=== PATIENT | female | born 1985 | race Caucasian/White ===

== ENCOUNTER 2018-08-27 10:20 | Outpatient (REF) | payer BC, SELFPAY ==
[2018-08-28 14:18] LABS: Chlamydia Result Negative; GC Result Negative; Specimen Description CERVIX
== END 2018-08-27 10:40 ==
LOC: LBN 10:20
PROVIDERS: PCP Family Medicine; Visit Provider Nurse Practitioner Women's Health
DX: Z11.3 Encounter for screening for infections with a predominantly sexual mode of transmission (principal)
CPT/HCPCS: 87491; 87591

== ENCOUNTER 2019-08-23 14:53 | Outpatient (REF) | payer BC, SELFPAY ==
--- NOTE | 2019-08-23 14:15 | PAPFT_PTH ---
PATIENT: Brenda Ding LOC: [facility] U#:[id number] AGE/SX: 33/F ROOM: RE08/23/[address]: NILE Shin : 1985 BED: DIS: 08/23/2019 SPEC #: [id number] RECD: 08/23/19 18:35 STATUS: OLIVEChrissy REQ #: [id number] PRISCILLA: 08/23/19 14:[address]: Alicia Graf DEPT: [facility] Cytology RECD BY: Carrie Harding ENTERED: 08/23/19 18:35 SP TYPE: PAPFT OTHR DR: Chau Villegas Tissues: 1 - CX/ENDOCX FOR PAP SMEARS Procedures: PAP THIN PREP/UVM Screening HPV DNA PROBE Comments: [id number]
== END 2019-08-23 15:13 ==
LOC: LBN 14:53
PROVIDERS: PCP Family Medicine; Visit Provider Nurse Practitioner Family
DX: Z12.4 Encounter for screening for malignant neoplasm of cervix (principal); Z11.51 Encounter for screening for human papillomavirus (HPV)
CPT/HCPCS: 88142; 87624

== ENCOUNTER 2019-08-23 15:58 | Outpatient (CLI) | payer BC, SELFPAY ==
[2019-08-23 17:01] LABS: HCG Quant, Pregnancy 65 mIU/mL (1-3)
== END 2019-08-23 16:18 ==
PROVIDERS: PCP Family Medicine; Visit Provider Nurse Practitioner Family
DX: Z32.01 Encounter for pregnancy test, result positive (principal)
CPT/HCPCS: 36415; 84702

== ENCOUNTER 2019-08-26 09:34 | Outpatient (CLI) | payer BC, SELFPAY ==
[2019-08-26 12:25] LABS: HCG Quant, Pregnancy 50 mIU/mL (1-3)
== END 2019-08-26 09:54 ==
PROVIDERS: PCP Family Medicine; Visit Provider Nurse Practitioner Family
DX: Z32.01 Encounter for pregnancy test, result positive (principal)
CPT/HCPCS: 36415; 84702

== ENCOUNTER 2019-09-03 09:49 | Outpatient (CLI) | payer BC, SELFPAY ==
[2019-09-03 11:43] LABS: HCG Quant, Pregnancy 45 mIU/mL (1-3)
== END 2019-09-03 10:09 ==
PROVIDERS: PCP Family Medicine; Visit Provider Nurse Practitioner Family
DX: N92.6 Irregular menstruation, unspecified (principal)
CPT/HCPCS: 36415; 84702

== ENCOUNTER 2019-09-06 01:53 | Outpatient (CLI) | payer BC, SELFPAY ==
[2019-09-06 09:38] LABS: HCG Quant, Pregnancy 7 mIU/mL (1-3)
--- NOTE | 2019-09-06 15:00 | DI.US_ITS ---
EXAM: US OB TRANSVAGINAL CLINICAL HISTORY: inappropriately rising quant - r/o ectopic,Q20.9 TECHNIQUE: Ultrasound performed using standard protocol. COMPARISON: PELVIS TRANSVAG from 12/25/2016 FINDINGS: The uterus measures 7.6 cm long by 4.1 cm AP x 5.4 cm transverse. No evidence of a uterine mass is s een. There is no evidence of an intrauterine gestational sac. There is a small amount of free fluid in the lower uterine segment of the endometrial canal. The right ovary measures 3.4 x 1.7 x 1.5 cm. There are small follicular cysts present. There is norm al blood flow to the right ovary. No evidence of torsion is present. No suspicious ovarian mass is present. The left ovary measures 2.8 x 1.6 x 2.6 cm. There are small follicular cysts present. There is sabino l blood flow to the left ovary. No evidence of torsion is present. No suspicious ovarian mass is pr esent. No suspicious adnexal mass or free pelvic fluid is seen. IMPRESSION: Unremarkable pelvic ultrasound. No evidence of an intrauterine or pelvic mass.
== END 2019-09-06 02:13 ==
PROVIDERS: PCP Family Medicine; Visit Provider Nurse Practitioner Family
DX: N92.6 Irregular menstruation, unspecified (principal); N83.01 Follicular cyst of right ovary
CPT/HCPCS: 36415; 76817; 84702

== ENCOUNTER 2020-03-17 13:43 | Outpatient (CLI) | payer BC, SELFPAY ==
[2020-03-20 12:23] LABS: COVID-19 RT-PCR UVMMC Result Negative (Negative)
== END 2020-03-17 14:03 ==
PROVIDERS: PCP Family Medicine; Visit Provider Obstetrics & Gynecology
DX: Z11.59 Encounter for screening for other viral diseases (principal)
CPT/HCPCS: U0003

== ENCOUNTER 2020-03-20 09:44 | Day surgery (SDC) | payer BC, SELFPAY ==
[2020-03-20 10:01] VITALS: BP 108/71; PULSE 84; RESP 16; TEMP 36.9; O2SAT 99
--- NOTE | 2020-03-20 10:15 | W.PM.HP.N ---
Date of service: 03/20/20 Time of Service: 10:15 Assessment and Plan Assessment and plan (1) Missed : Status: Acute Assessment and plan: Plan to proceed with suction D&C. Risks of surgery were reviewed with the patient including hemorrhage, infection and uterine perforation. All questions were answered to the patient's satisfaction and consent for surgery was obtained. History of Present Illness History of Present Illness Chief Complaint: Missed Narrative: 34 year old @ ~ 10 weeks gestation by LMP presents today for surgical management of missed . The patient underwent 1st trimester ultrasound in the clinic nearly two weeks ago which showed an empty and irregular gestational sac with no visible pole or yolk sac. The patient initial elected for expectant management and then opted for medical management at home. She recieved multiple doses of both oral and vaginal misoprostol with no result over several days. The decision was made to discontinue medical management and proceed with surigical management. She has had no significant vaginal bleeding. No pain or fevers but reports a feeling of malaise over the last week and attributes this to the miscarriage. Review of Systems All systems reviewed & are unremarkable except as noted in HPI and below PFSH Social History Smoking/Tobacco Use Status: Never Alcohol Intake: current Alcohol Intake frequency: a few times a month Drug use: Never Substance use type: does not use Counseling given: No Details: alcohol: weeks ago Seatbelt use: always Do you feel safe at home: Yes Do you feel safe in your relationship?: Yes Female Reproductive History Menstrual control method: progestin IUCD History History 3 Para 1 Hx # Term Pregnancies Multiple births Hx # Pregnancies Ectopic pregnancies AB induced Hx Number of Living Children AB spontaneous 1 Meds Home Medications and Allergies Home Medications Medication Instructions Recorded Confirmed Type ascorbic acid (vitamin C) 500 mg 500 mg PO DAILY PRN cap 08/23/19 03/20/20 History capsule misoprostol 200 mcg tablet 400 mcg PO .q4h #3 tab 03/07/20 03/20/20 Rx Allergies Allergy/AdvReac Type Severity Reaction Status Date / Time No Known Allergies Allergy Unverified 03/20/20 09:59 Exam Resp Auscultation: clear to auscultation bilaterally Cardio Rate: regular rate Rhythm: regular rhythm Results Last Vital Signs Temp 98.4 F 05/11/20 10:01 Pulse 84 03/20/20 10:01 Resp 16 03/20/20 10:01 BP 108/71 03/20/20 10:01 Pulse Ox 99 03/20/20 10:01 COVID-19 Screening Traveled to [place] from one of the affected countries or regions?: NO
[2020-03-20 10:33] LABS: Abs Immature Grans 0.01 k/cumm (0.0-0.09); Absolute Basophil Count 0.02 k/cumm (0.0-0.2); Absolute Eosinophil Count 0.03 k/cumm (0.0-0.7); Absolute Lymphocyte Count 1.45 k/cumm (1.2-3.4); Absolute Monocyte Count 0.47 k/cumm (0.11-0.7); Absolute Neutrophil Count 4.39 k/cumm (1.2-6.7); Basophils % 0.3; Eosinophils % 0.5; HCT 38.5 % (36.0-46.0); HGB 13.4 g/dL (12.0-15.5); Immature Grans % 0.2 %; Lymphocytes % 22.8; Mean Corp. HGB Concentration 34.8 g/dL (32.0-36.0); Mean Corpuscular Hemoglobin 32.1 pg (27.0-33.0); Mean Corpuscular Volume 92.1 fL (80-95); Mean Platelet Volume 10.1 fL (8.0-11.0); Monocytes % 7.4; Neutrophils % 68.8; Platelet Count 215 x1000/uL (130-400); RBC 4.18 m/cumm (4.00-5.20); RBC Distribution Width 12.2 % (11.7-14.6); White Blood Cell Count 6.37 k/cumm (4.4-10.8)
[2020-03-20] MEDS: Lactated Ringers 1,000 ML 125 ML IV (10:40)
[2020-03-20] MEDS: Lidocaine 1% Multi-Dose 50 ML VIAL (11:20)
--- NOTE | 2020-03-20 11:29 | POCSPONT_PTH ---
PATIENT: Brenda Ding LOC: [facility] U#:[id number] AGE/SX: 34/F ROOM: RE03/20/[address]: Ronald Moran MD : 1985 BED: DIS: 03/20/2020 SPEC #: [id number] RECD: 03/20/20 12:27 STATUS: FLACO [place]AY #: [id number] PRISCILLA: 03/20/20 11:[address]: Ronald Moran DEPT: Surgical Specimen RECD BY: Carrie Harding ENTERED: 03/20/20 12:28 SP TYPE: POCSPONT OTHR DR: Chau Villegas Tissues: 1 - ,SPONTANEOUS Procedures: GROSS AND MICRO LEVEL 4 IMMUNOPEROXIDASE STAIN POC Aneuploidy Detection, FISH Comments: [id number]
--- NOTE | 2020-03-20 11:31 | W.PM.OP ---
Date of service: 03/20/20 Time of Service: 11:31 Operative Note Operative Note DATE OF PROCEDURE: 03/20/20 PRE-OP DIAGNOSIS: 9 week Missed POST-OP DIAGNOSIS: same PROCEDURE: Suction D&C SURGEON: Ronald Moran ANESTHESIA: MAC ESTIMATED BLOOD LOSS: 75 PATHOLOGY: other (POC) COMPLICATIONS: None Patient was transported to: PACU Patient's condition: stable Findings: 1. Products of conception Procedure Description: The patient was taken to the operating room and after adequate sedation was achieved the patient was placed in lithotomy position. The patient was prepped and draped in the usual sterile manner. A weighted speculum was placed in the vagina with good visualization of the cervix. The cervix was grasped with an Allis forceps. A paracervical block with 10 cc of 1% plain lidocaine solution was instilled. The cervix was gently dilated with [place] dilators. A 10 Swedish curved suction curette was advanced easily. The suction apparatus was activated and the curette was rotated. Copious products of conception were retrieved. A sharp curettage was performed and a second pass with the suction curette was made. An additional sharp curettage confirmed a gritty texture throughout and no additional products of conception were retrieved. The uterus was well contracted. Bleeding was minimal. The procedure was concluded at this point. All instrumentation was removed. Sponge, lap and needle counts were correct at the conclusion of the procedure. The patient was transferred to PACU in stable condition.
--- NOTE | 2020-03-20 11:34 | W.PM.DSUDISC ---
Discharge Plan Disposition Patient Disposition: HOME Discharge Details Reason For Visit: MISSED AB Attending Provider: Ronald Moran Primary Care Provider: Chau Villegas [place] Meds and New Rx's Prescriptions: New hydrocodone-acetaminophen 5-325 mg Tablet 1 tab PO Q4H PRN Qty: 10 RF: 0 No Action ascorbic acid (vitamin C) 500 mg capsule 500 mg PO DAILY PRN RF: 0 misoprostol 200 mcg tablet 400 mcg PO .q4h Qty: 3 RF: 0 Discharge Orders Discharge Orders: Discharge Order (Routine); Ordered 03/20/20 Ordered By: Ronald Moran DS: Diagnosis Discharge Diagnosis (1) Missed : Status: Acute
[2020-03-20 12:08] VITALS: BP 120/68; PULSE 73; RESP 16; TEMP 36.3; O2SAT 99
== END 2020-03-20 13:00 | disposition home or self-care (01) ==
PROVIDERS: PCP Family Medicine; Visit Provider Obstetrics & Gynecology
PROC: (CPT 59841; principal; 2020-03-20 11:00)
DX: O02.1 Missed abortion (principal)
CPT/HCPCS: 59820; 36415; 86850; 86900; 86901; 88305; 99223; 85025; 88271; 88291; 88361; J1885; J2001; J2405

== ENCOUNTER 2020-03-28 03:20 | Outpatient (CLI) | payer BC, SELFPAY ==
[2020-03-28 14:05] LABS: ALT 28 U/L (14-59); AST 18 U/L (15-37); Albumin 3.9 g/dL (3.4-5.0); Alkaline Phosphatase 63 U/L (46-116); Anion Gap 8.7 mmol/L (3-11); BUN 14 mg/dL (7-18); Bilirubin, Total 0.5 mg/dL (0.2-1.0); CO2 28.3 mmol/L (21.0-32.0); CREATININE 0.78 mg/dL (0.55-1.02); Chloride 102 mmol/L (98-107); Glucose 78 mg/dL (74-106); HCG Quant, Pregnancy 681 mIU/mL (1-3); Potassium 4.1 mmol/L (3.5-5.1); Sodium 139 mmol/L (136-145); TSH 1.22 uIU/mL (0.36-3.74); Total Protein 7.2 g/dL (6.4-8.2)
== END 2020-03-28 03:40 ==
PROVIDERS: PCP Family Medicine; Visit Provider Obstetrics & Gynecology
DX: O08.89 Other complications following an ectopic and molar pregnancy (principal)
CPT/HCPCS: 36415; 80053; 84443; 84702

== ENCOUNTER 2020-04-04 01:48 | Outpatient (CLI) | payer BC, SELFPAY ==
[2020-04-04 16:22] LABS: HCG Quant, Pregnancy 81 mIU/mL (1-3)
== END 2020-04-04 02:08 ==
PROVIDERS: PCP Family Medicine; Visit Provider Obstetrics & Gynecology
DX: O08.89 Other complications following an ectopic and molar pregnancy (principal)
CPT/HCPCS: 36415; 84702

== ENCOUNTER 2020-04-11 04:37 | Outpatient (CLI) | payer BC, SELFPAY ==
[2020-04-11 11:55] LABS: HCG Quant, Pregnancy 20 mIU/mL (1-3)
== END 2020-04-11 04:57 ==
PROVIDERS: PCP Family Medicine; Visit Provider Obstetrics & Gynecology
DX: O08.89 Other complications following an ectopic and molar pregnancy (principal)
CPT/HCPCS: 36415; 84702

== ENCOUNTER 2020-04-18 04:30 | Outpatient (CLI) | payer BC, SELFPAY ==
[2020-04-18 13:03] LABS: HCG Quant, Pregnancy 7 mIU/mL (1-3)
== END 2020-04-18 04:50 ==
PROVIDERS: Nurse Practitioner Women's Health; PCP Family Medicine; Visit Provider Obstetrics & Gynecology
DX: N91.2 Amenorrhea, unspecified (principal)
CPT/HCPCS: 36415; 84702

== ENCOUNTER 2020-04-27 04:24 | Outpatient (CLI) | payer BC, SELFPAY ==
[2020-04-27 13:01] LABS: HCG Quant, Pregnancy 4 mIU/mL (1-3)
== END 2020-04-27 04:44 ==
PROVIDERS: PCP Family Medicine; Visit Provider Obstetrics & Gynecology
DX: O08.89 Other complications following an ectopic and molar pregnancy (principal)
CPT/HCPCS: 36415; 84702

== ENCOUNTER 2020-05-11 02:13 | Outpatient (CLI) | payer BC, SELFPAY ==
[2020-05-11 11:17] LABS: HCG Quant, Pregnancy 2 mIU/mL (1-3)
== END 2020-05-11 02:33 ==
PROVIDERS: PCP Family Medicine; Visit Provider Obstetrics & Gynecology
DX: O08.89 Other complications following an ectopic and molar pregnancy (principal)
CPT/HCPCS: 36415; 84702

== ENCOUNTER 2020-06-13 01:41 | Outpatient (CLI) | payer BC, SELFPAY ==
[2020-06-13 14:01] LABS: HCG Quant, Pregnancy 1 mIU/mL (1-3)
== END 2020-06-13 02:01 ==
PROVIDERS: PCP Family Medicine; Visit Provider Obstetrics & Gynecology
DX: O01.9 Hydatidiform mole, unspecified (principal)
CPT/HCPCS: 36415; 84702

== ENCOUNTER 2020-07-21 03:54 | Outpatient (CLI) | payer BC, SELFPAY ==
[2020-07-21 12:47] LABS: HCG Quant, Pregnancy < 1 mIU/mL (1-3)
== END 2020-07-21 04:14 ==
PROVIDERS: PCP Family Medicine; Visit Provider Obstetrics & Gynecology
DX: O01.1 Incomplete and partial hydatidiform mole (principal)
CPT/HCPCS: 36415; 84702

== ENCOUNTER 2020-08-15 01:18 | Outpatient (CLI) | payer BC, SELFPAY ==
[2020-08-15 16:45] LABS: HCG Quant, Pregnancy < 1 mIU/mL (1-3)
== END 2020-08-15 01:38 ==
PROVIDERS: PCP Family Medicine; Visit Provider Obstetrics & Gynecology
DX: O01.1 Incomplete and partial hydatidiform mole (principal)
CPT/HCPCS: 36415; 84702

== ENCOUNTER 2020-09-11 03:40 | Outpatient (CLI) | payer BC, SELFPAY ==
[2020-09-11 13:59] LABS: HCG Quant, Pregnancy < 1 mIU/mL (1-3)
== END 2020-09-11 04:00 ==
PROVIDERS: PCP Family Medicine; Visit Provider Obstetrics & Gynecology
DX: O01.1 Incomplete and partial hydatidiform mole (principal)
CPT/HCPCS: 36415; 84702

== ENCOUNTER 2020-10-09 03:33 | Outpatient (CLI) | payer BC, SELFPAY ==
[2020-10-09 17:17] LABS: HCG Quant, Pregnancy < 1 mIU/mL (1-3)
== END 2020-10-09 03:53 ==
PROVIDERS: PCP Family Medicine; Visit Provider Obstetrics & Gynecology
DX: O08.89 Other complications following an ectopic and molar pregnancy (principal)
CPT/HCPCS: 36415; 84702

== ENCOUNTER 2021-01-02 09:57 | Outpatient (CLI) | payer BC, SELFPAY ==
[2021-01-02 10:56] LABS: HCG Quant, Pregnancy 13498 mIU/mL (1-3)
== END 2021-01-02 09:58 | disposition home or self-care (01) ==
LOC: LBO 09:58
PROVIDERS: PCP Family Medicine; Visit Provider Nurse Practitioner Women's Health
DX: Z32.00 Encounter for pregnancy test, result unknown (principal); Z87.59 Personal history of other complications of pregnancy, childbirth and the puerperium
CPT/HCPCS: 36415; 84702

== ENCOUNTER 2021-01-10 01:33 | Outpatient (CLI) | payer BC, SELFPAY ==
--- NOTE | 2021-01-10 07:00 | DI.US_ITS ---
EXAM: US OB 1ST TRIMESTER CLINICAL HISTORY: , previous molar ,Z87.59. COMPARISON: No previous for comparison TECHNIQUE: Transabdominal Transvaginal first trimester obstetrical ultrasound performed. FINDINGS: Sonographic images demonstrate a single intrauterine gestation. A yolk sac and pole are seen. Sonographically assessed gestational age based upon crown-rump length of 1.0 cm is: 7 weeks 1 day Estimated date of delivery based on this ultrasound is: 08/28/2021 heart rate motion is Dopplered at: 133 bpm. No free fluid identified. Both ovaries appear sonographically normal. There is a 2.9 x 1.9 x 3 cm corpus luteal cyst on the rig ht ovary. Pelvic Measurments Uterus: 7.1 long x 6.2 AP x 6.0 transverse cm Rt Ovary: 3.7 x 3.5 x 2.1 cm Lt Ovary: 2.6 x 1.4 x 2.1 cm IMPRESSION: Single live intrauterine gestation as above. DATA REPOSITORY:
== END 2021-01-10 01:53 ==
PROVIDERS: PCP Family Medicine; Visit Provider Nurse Practitioner Women's Health
DX: Z34.91 Encounter for supervision of normal pregnancy, unspecified, first trimester (principal); Z87.59 Personal history of other complications of pregnancy, childbirth and the puerperium
CPT/HCPCS: 76801

== ENCOUNTER 2021-02-02 15:23 | Outpatient (REF) | payer BC, SELFPAY ==
[2021-02-02 17:24] LABS: *AMPHETAMINES SCREEN URINE Negative (Negative); *BARBITURATES SCREEN URINE Negative (Negative); *BENZODIAZEPINES SCREEN URINE Negative (Negative); Cannabinoids THC Negative (Negative); Cocaine Screen,Urine Negative (Negative); METHADONE URINE SCREEN Negative (Negative); OPIATES URINE SCREEN Negative (Negative)
[2021-02-02 17:34] LABS: Tricyclic Antidepressants Negative (Negative)
[2021-02-05 14:57] LABS: Chlamydia Result Negative (Negative); GC Result Negative (Negative)
[2021-02-08 09:31] LABS: Buprenorphine Negative ng/mL (Cutoff: 5.0); Norbuprenorphine Negative ng/mL (Cutoff: 2.5)
== END 2021-02-02 15:24 | disposition home or self-care (01) ==
LOC: LBN 15:23
PROVIDERS: PCP Family Medicine; Visit Provider Advanced Practice Midwife
DX: Z34.91 Encounter for supervision of normal pregnancy, unspecified, first trimester (principal); Z11.3 Encounter for screening for infections with a predominantly sexual mode of transmission
CPT/HCPCS: 80307; 87491; 87591; 87086

== ENCOUNTER 2021-02-08 03:24 | Outpatient (CLI) | payer BC, SELFPAY ==
[2021-02-08 08:29] LABS: Abs Immature Grans 0.03 10^3/uL (0.0-0.06); Absolute Basophil Count 0.02 10^3/uL (0.0-0.2); Absolute Eosinophil Count 0.04 10^3/uL (0.0-0.7); Absolute Lymphocyte Count 1.91 10^3/uL (1.2-3.4); Absolute Monocyte Count 0.39 10^3/uL (0.1-0.8); Absolute Neutrophil Count 5.49 10^3/uL (1.2-6.7); Basophils % 0.3; Eosinophils % 0.5; HCT 38.9 % (36.0-46.0); HGB 13.4 g/dL (11.2-15.7); Immature Grans % 0.4; Lymphocytes % 24.2; MCHC 34.4 % (32.0-36.0); MCV 92.8 fL (80-95); MPV 9.6 fL (8.0-11.0); Monocytes % 4.9; Neutrophils % 69.7; Nucleated RBC 0 %; Platelet Count 201 10^3/uL (130-400); RBC 4.19 10^6/uL (3.93-5.22); RDW 12.3 % (11.7-14.6); RDW-SD 42.4 fL; WBC 7.88 10^3/uL (4.4-10.8)
[2021-02-08 09:22] LABS: TSH (W/Ref FT4) 0.79 uIU/mL (0.36-3.74)
[2021-02-09 09:35] LABS: Hepatitis B Surface Ag Negative (Negative)
[2021-02-09 09:43] LABS: Varicella IgG Antibody Positive (See Note)
[2021-02-09 09:49] LABS: Rubella IgG Ab (UVM) Positive (See Note)
[2021-02-09 10:08] LABS: Hepatitis C Ab w Rflx HCV PCR Negative (Negative)
[2021-02-09 10:22] LABS: HIV-1/2 Ag & Ab Screen Negative (Negative)
[2021-02-09 16:33] LABS: Syphilis Total Ab w/Reflex Nonreactive (Nonreactive)
== END 2021-02-08 03:25 | disposition home or self-care (01) ==
LOC: LBO 03:24
PROVIDERS: PCP Family Medicine; Visit Provider Advanced Practice Midwife
DX: Z34.91 Encounter for supervision of normal pregnancy, unspecified, first trimester (principal); Z11.4 Encounter for screening for human immunodeficiency virus [HIV]; Z11.59 Encounter for screening for other viral diseases; Z01.84 Encounter for antibody response examination
CPT/HCPCS: 36415; 86787; 86803; 86850; 86900; 86901; 87340; 87389; 84443; 85025; 86762; 86780

== ENCOUNTER 2021-06-05 03:49 | Outpatient (CLI) | payer BC, SELFPAY ==
[2021-06-05 09:01] LABS: HCT 33.5 % (36.0-46.0); HGB 11.2 g/dL (11.2-15.7); MCH 31.8 pg (27.0-33.0); MCHC 33.4 % (32.0-36.0); MCV 95.2 fL (80-95); MPV 10.4 fL (8.0-11.0); Platelet Count 163 10^3/uL (130-400); RBC 3.52 10^6/uL (3.93-5.22); RDW 12.4 % (11.7-14.6); RDW-SD 42.5 fL; WBC 7.86 10^3/uL (4.4-10.8)
[2021-06-05 09:09] LABS: Glucose,1 Hr (Glucola) 85 mg/dL (80-140)
== END 2021-06-05 03:50 | disposition home or self-care (01) ==
LOC: LBO 03:50
PROVIDERS: PCP Family Medicine; Visit Provider Advanced Practice Midwife
DX: Z34.92 Encounter for supervision of normal pregnancy, unspecified, second trimester (principal); Z3A.27 27 weeks gestation of pregnancy
CPT/HCPCS: 36415; 82950; 85027

== ENCOUNTER 2021-08-03 19:37 | Outpatient (REF) | payer BC, SELFPAY ==
[2021-08-03 12:49] LABS: *AMPHETAMINES SCREEN URINE Negative (Negative); *BARBITURATES SCREEN URINE Negative (Negative); *BENZODIAZEPINES SCREEN URINE Negative (Negative); Cannabinoids THC Negative (Negative); Cocaine Screen,Urine Negative (Negative); METHADONE URINE SCREEN Negative (Negative); OPIATES URINE SCREEN Negative (Negative); Tricyclic Antidepressants Negative (Negative)
[2021-08-09 14:17] LABS: Buprenorphine Negative ng/mL (Cutoff: 5.0); Norbuprenorphine Negative ng/mL (Cutoff: 2.5)
== END 2021-08-03 19:38 | disposition home or self-care (01) ==
LOC: LBN 19:37
PROVIDERS: PCP Family Medicine; Visit Provider Advanced Practice Midwife
DX: Z34.93 Encounter for supervision of normal pregnancy, unspecified, third trimester (principal); Z3A.36 36 weeks gestation of pregnancy
CPT/HCPCS: 80307; 87081

== ENCOUNTER 2021-08-28 23:23 | Inpatient (IN) | payer MEDICAID, SELFPAY ==
[2021-08-28] VITALS (18 sets, daily range): BP systolic 120; BP diastolic 62; PULSE 55–84; TEMP 36.8; O2SAT 95–97
[2021-08-29] VITALS (16 sets, daily range): BP systolic 96–123; BP diastolic 52–74; PULSE 43–78; RESP 16–20; TEMP 36.8–37.2; O2SAT 97–98
--- NOTE | 2021-08-29 01:00 | HPE_ITS ---
Date of service: 08/29/21 Time of Service: 00:05 Assessment and Plan Assessment and plan (1) Decreased movement: Status: Acute Assessment and plan: Admit to Center. Comfort measures. Covid- 19 test. I explained to Brenda the heart rate pattern. I recommended continuous monitoring overnight with BPP in the morning if indicated. Will consider cervical ripening if indicated tomorrow morning if spontaneous labor does not occur. Stripping of membranes was offered but Brenda declines at this time. Methods of cervical ripening were reviewed and Brenda will consider this. OB-HPI Labor/Delivery History of Present Illness Reason for Visit: Decreased Movement, FHR Deceleration to 90s Chief Complaint: Decreased Movement , Associated Signs and Symptoms of Decreased Movement: contractions. DICK Calculator Estimated Delivery Date Method Current WG Current Estimate 08/30/21 LMP (Certain) 39w 6d Other Estimates 08/28/21 Ultrasound #1 40w 1d Comments: Brenda called and reported that baby was not moving as much as usual. She reported hiccups earlier but decreased movement overall. She arrived at the Center and an NST was done. HR baseline 110 with accellerations to 140. occasional FHr decellerations which are variable and down to 90-100. Frequent mild contractions noted. Brenda is admitted for further observation. History of Present Expected Delivery Route/Plan - CNM FOB/partner - [place] (first baby together, his first child) BG - Aliza GBS negative Interested in nitrous, hopes to avoid epidural Specific Issues/Plan 1. CF negative in 2008. [place] and SMA declined 2. Brenda and partner decline vaccine. 3. Low-lying placenta - 0.64 cm from os - repeat US at 28 weeks: 06/15/21 RESOLVED placenta 6.7 cm from OS 4. difficulty with tight latch and supplemented- would like consult at about 28-30 weeks, done 06/15/21 5. Pt hopes to avoid particular staff during inpt stay, internal audit manager made aware 6. Heartburn - resolved without medications- triggered by green apples and spices and manan. [facility] Medical History (Updated 08/29/21 @ 01:05 by Noemi Bernal CNM) Family history of breast cancer MGM 55 History of molar Family History (Updated 03/06/21 @ 09:06 by Noemi Bernal CNM) Paternal Grandmother , 55 Breast cancer Personal history of malignant neoplasm Father Hypertension Maternal Grandfather , 70s Myocardial infarct Social History Smoking/Tobacco Use Status: Never Smoking risk assessment performed?: Yes Alcohol Intake: current Alcohol Intake frequency: a few times a month Drug use: Never Substance use type: does not use Counseling given: No Details: alcohol: weeks ago Seatbelt use: always Do you feel safe at home: Yes Do you feel safe in your relationship?: Yes Female Reproductive History Menstrual control method: none History History 4 Para 1 Hx # Term Pregnancies 1 Multiple births 0 Hx # Pregnancies 0 Ectopic pregnancies 0 AB induced 0 Hx Number of Living Children 1 AB spontaneous 2 Past Pregnancies Del. Date GA/Weeks # Outcome Route Wgt Sex Labor Lgth Anesthes ia Location [facility] 01/30/10 40 No Successful vaginal 7 lb 5 oz Male 5.[address] Lor Conklin Delivery Date: 01/30/10 Placental hematoma, bleeding in 2nd trimester. Hospitalized x 1 week at [facility] [place]. Bedrest x last three months. Zully Boykin Allergies and Home Medications Allergies Allergy/AdvReac Type Severity Reaction Status Date / Time No Known Allergies Allergy Unverified 08/17/21 08:34 Home Medications Medication Instructions Recorded Confirmed Type ascorbic acid (vitamin C) 500 mg 500 mg PO DAILY PRN cap 08/23/19 08/10/21 History capsule prenat.vits,brenda,ieu-epum-[id number] 1 tab PO DAILY 01/02/21 08/10/21 History lactobacillus combination no.8 3 3,000 mmu cells PO DAILY PRN 03/06/21 08/10/21 History billion cell capsule omega-3 fatty acids 1,000 mg 1,000 mg PO DAILY PRN 03/06/21 08/10/21 History capsule calcium carbonate 400 mg calcium 400 mg PO QID PRN tab 07/12/21 08/10/21 History (1,000 mg) chewable tablet Floradix PO 08/10/21 08/10/21 History Exam Physical Exam Vital signs: Temp Pulse Resp BP Pulse Ox 98.2 F 67 18 123/67 98 08/29/21 00:10 08/29/21 00:47 08/29/21 00:10 08/29/21 00:47 08/29/21 00:10 Vital Signs Reviewed: Yes Constitutional Constitutional: no acute distress Detailed Labor and Delivery Exam Dilation: 1 Effacement (%): 50 station: -1 Cervix position: mid Consistency: soft Fernando Score: Cervical Points Exam 0 1 2 3 Dilation Closed 1-2cm 3-4 cm 5-6cm Effacement 0-30% 40-50% 60-70% 80% Consistency Firm Medium Soft Station -3 -2 -1,0 +1,+2 Position Posterior Mid Anterior Amniotic Membrane Status: Intact Contraction Frequency(min): every 2- 3minutes Contraction Duration(sec): 40-60 Contraction Intensity: Mild Fetus A Heart Rate Baseline: 110 Monitor Accelerations: 15 X 15 Monitor Decelerations: Variable Variability: Moderate (6-25 BPM) Presentation: Vertex Categories: Category I Est. Weight: 7 Respiratory Exam Respiratory Exam: Normal Cardiovascular Exam Cardiovascular Exam: Normal Abdominal Exam Abdominal Exam: Normal Exam Exam: Normal Extremities Exam Extremities Exam: Normal Skin Exam Skin Exam: Normal Psychiatric Exam Psychiatric Exam: Normal Risk Assessment Risk for Shoulder Dystocia Historical/Initial OB: NEGATIVE FOR: Pelvic Abnormality, Pre- BMI>30, Previous Shoulder Dystocia or Previous Macrosomia 40 Weeks: NEGATIVE FOR: EFW> 4500 gms, Maternal Weight Gain >40lb or Post Dates Risk for Pre-Eclampsia Daily Dose ASA Indicated: No Yes, if one or more: NEGATIVE FOR: Hx Pre-E/Gest HTN, Chronic HTN, Multiple Gestation, Pre-gestational DM, Renal Disease, Systemic Lupus or APA Syndrome Yes, if 2 or more: NEGATIVE FOR: Nulliparity, Age>= 35 yrs, >10yr btwn pregnancies, BMI>30, ethinicty, Mother/Sister w/ Pre-E or Previous IUGR Risk for Post- Hemorrhage Initial: NEGATIVE FOR: Multiple Gestation, Previous PPH, Known Clotting Deficiency, Grand Multiparity or Anticoagulation At Risk?: No Risks Reviewed Risks Reviewed Upon Admission: Yes
[2021-08-29 01:13] LABS: Source Nasal/Nares
[2021-08-29 02:06] LABS: COVID-19 PCR Negative (Negative)
--- NOTE | 2021-08-29 06:58 | W.PM.OBNL1 ---
Date of service: 08/29/21 Time of Service: 06:58 Informed Consent Informed Consent: Risk,Benefits,Alternatives Discussed (awaiting active labor and continued FHR assessment by doppler) Pelvic Exam Dilation: 2 Effacement (%): 80 Cervix Position: posterior Consistency: soft Vaginal Exam Presentation: Cephalic Pooling: Negative Contractions Monitor Mode: Palpation Contraction Frequency(min): every 2-3 Contraction Duration(sec): 50-60 Intensity: Mild/Moderate Fetus A Monitor: External (US) Heart Rate Baseline: 110 Presentation: Cephalic Variability: Moderate (6-25 BPM) Categories: Category I FHR Rhythm: Regular Accelerations: 15 X 15 Decelerations: Variable (brief down to 100) Amniotic Membrane Status: Intact Assessment and Plan Assessment and plan (1) Spontaneous onset of labor: Status: Acute Assessment and plan: Brenda was allowed out of bed for comfort. Will continue to assess FHR pattern and encourage comfortable positions. (2) Variable deceleration: Status: Acute Assessment and plan: continued HR assessment by doppler auscultation. Objective Temp Pulse Resp BP Pulse Ox 98.2 F 67 18 123/67 98 08/29/21 03:40 08/29/21 03:40 08/29/21 03:40 08/29/21 03:40 08/29/21 03:40 Laboratory Results COVID-19 Source Nasal/Nares 08/29/21 01:00 SARS-CoV-2 (PCR) Negative (Negative) 08/29/21 01:00 Subjective Patient Reports: New Complaints Interval history since last seen: Brenda was unable to sleep due to stronger contractions which are painful. She rates her pain 5/10. FHR has been stable through the night with occasional variable decellerations.
[2021-08-29 07:45] LABS: HCT 39.7 % (36.0-46.0); HGB 13.5 g/dL (11.2-15.7); MCV 94.1 fL (80-95); MPV 11.7 fL (8.0-11.0); Platelet Count 172 10^3/uL (130-400); RBC 4.22 10^6/uL (3.93-5.22); RDW 12.5 % (11.7-14.6); RDW-SD 42.9 fL; WBC 12.58 10^3/uL (4.4-10.8)
[2021-08-29] MEDS: Oxytocin 10 UNITS/ML VIAL IM (10:13)
--- NOTE | 2021-08-29 10:32 | OBVDS_ITS ---
Date of service: 08/29/21 Time of Service: 10:32 OB Labor/ Delivery Information Baby A Delivery Delivery Method: Spontaneaous Presentation: Cephalic Vertex Position: Right Occipital Anterior Cord Description-Baby A: 3 Vessels Amniotic Fluid: Meconium Estimated Blood Loss: 200 Delivery Outcome: Liveborn Infant Transferred: Remains with Mother Providers Nurse Instrument Lens Grinder Apprentice: Noemi Bernal Nurse: Mel Roger Nurse: Sweetie Nuñez Labor/Delivery Information Number of Babies in Womb: 1 Steroids Given: None Reason Steroids Not Administered: N/A Group Beta Strep: Negative Rubella Status: Immune Blood Type: A+ Varicella Immunity: Immune Maternal Complications: None Shoulder Dystocia: No Note: Dr. Berg was notified of francisca's admission and status. She used the ball and hands and knees position for comfort. FHTs 110-118 via doppler during first stage of labor, aisculatated with contractions. Francisca was experiencing pressure and was examined at 0845 and cevix was 5-6 cms/post/100% +1. She used nitrous oxide x 1 contraction with poor effect. FHTs 114-115 in second stage. Progressed to full dilation and began pushing on her left side. Second stage huddle was done. Spontaneous delivery of female delivered in GELY position. Baby was placed on mother's abdomen and dried and stimulated. Spontaneous cry. Cord was clamped and cut by the baby's father. The placenta delivered spontaneously and appears to by intact with a three vessel cord. Pitocin 10 units IM was administered after delivery of the placenta. The perineum was inspected and is intact with a small vaginal abrasion which was not repaired. The baby did breastfeed. After delivery, Mother and baby and father of the baby were stable and bonding well in the delivery room and there were no complications. Stages of Labor Onset of Labor Date: 08/28/21 Onset of Labor Time: 22:00 Complete Dilatation Date: 08/29/21 Complete Dilatation Time: 09:45 Labor - Stage 1 Duration: 24 hours and 0 minutes ROM Baby A: 08/29/21 ROM Baby A: 09:45 ROM Total Time- Baby A: [id number] Delivery Date-Baby A: 08/29/21 Delivery Time-Baby A: 10:06 Labor Stage 2 Duration: 21 minutes Placenta Delivery Date-Baby A: 08/29/21 Placenta Delivery Time-Baby A: 10:12 Labor-Stage 3 Duration: 6 minutes Total Length of Labor-Baby A: 12 hours and 6 minutes Placenta Cultured: No Placenta Status: Delivered Baby A Gender: Female Gestational Status: Term (39-41.6 wks) Gestational Age in Weeks/Days: 39 Weeks and 6 Days Score-1 Minute Interval(Baby A) Heart Rate-1 minute: 100 BPM or Greater Respiratory Effort- 1 minute: Spontaneous/Strong Cry Muscle Tone-1 minute: Active Movement Reflex Response-1 minute: Prompt Response Color-1 minute: Bluish Hands or Feet Total Score-1 minute: 9 Score-5 Minute Interval(Baby A) Heart Rate- 5 minute: 100 BPM or Greater Respiratory Effort-5 minute: Spontaneous/Strong Cry Muscle Tone-5 minute: Active Movement Reflex Response-5 minute: Prompt Response Color-5 minute: Bluish Hands or Feet Total Score- 5 minute: 9
[2021-08-29] MEDS: Ibuprofen 600 MG TAB PO (10:46)
[2021-08-29] MEDS: Acetaminophen 325 MG TAB 650 MG PO (10:47)
[2021-08-29] MEDS: Hamamelis Leaf/Glycerin 100 EACH BOX PR (12:56)
--- NOTE | 2021-08-29 19:01 | W.PM.OBDISCH ---
Date of service: 08/29/21 Time of Service: 19:02 DS: Diagnosis Discharge Diagnosis (1) Term of female : Status: Acute Asessment and Plan: Caring for baby independently. Pain is managed well with oral analgesics. Voiding without difficulty. well. A - stable mother and baby , Post day of delivery P - Discharge to home today per patient request. They will return tomorrow morning for testing. Routine post instructions. [facility] Discharge Plan Disposition Patient Disposition: HOME Condition: Good Discharge Details Reason For Visit: Decreased Movement, FHR Deceleration to 90s Admit Date/Time: 08/29/21 07:04 Admit Provider: Noemi Bernal Attending Provider: Noemi Bernal Primary Care Provider: Chau Villegas Home Meds and New Rx's Prescriptions: Continued Adult Probiotic 3 billion cell capsule 3,000 mmu cells PO DAILY PRNRF: 0 calcium carbonate [Tums Ultra] 400 mg calcium (1,000 mg) tablet,chewable 400 mg PO QID PRN (Reason: dyspepsia) RF: 0 Floradix 10 mg PO BID RF: 0 ascorbic acid (vitamin C) 500 mg capsule 500 mg PO DAILY PRN RF: 0 prenat.vits,brenda,jas-azho-ymazn Tablet 1 tab PO DAILY RF: 0 No Action omega-3 fatty acids 1,000 mg capsule 1,000 mg PO DAILY PRNRF: 0 Discharge Instructions Stand Alone Forms: BC Instructions, BC Post Vaginal Deliver Activity:: Activity as Tolerated Equipment/Supplies:: No Equipment Needed Diet:: As Tolerated Discharge Orders Discharge Orders: Discharge Order (Routine); Ordered 08/29/21 Ordered By: Noemi Bernal OB:DS Summary Summary Vaginal Delivery Method: Spontaneaous Episiotomy Description: None Laceration Description: Perineal Laceration Extension: N/A Contraception Discussed Contraception Discussed: Yes Contraceptive Plan: Undecided, [place] Infant Gender-Baby A: Female weight: 6 lb 5.06 oz Status at Discharge Functional status at discharge: independent ambulation Overall status at discharge: patient is back to baseline Mental Status: mental status grossly normal Speech and Movement: speech and movement normal Mood: congruent mood Affect: normal affect Exam Physical Exam Vital signs: Temp Pulse Resp BP Pulse Ox 98.8 F 78 16 105/61 97 08/29/21 08:01 08/29/21 15:39 08/29/21 08:01 08/29/21 15:39 08/29/21 09:58 Vital Signs Reviewed: Yes Constitutional Constitutional: no acute distress Respiratory Exam Respiratory Exam: Normal Cardiovascular Exam Cardiovascular Exam: Normal Abdominal Exam Comments: Fundus firm down 1 FB Fundal Exam Fundus: Below Umbilicus Rectal Exam Rectal Exam: Normal Extremities Exam Extremity Exam: Normal Skin Exam Skin Exam: Normal Psychiatric Exam Psychiatric Exam: Normal [facility] Medical History (Updated 08/29/21 @ 19:02 by Noemi Bernal CNM) Family history of breast cancer MGM 55 History of molar Family History (Updated 03/06/21 @ 09:06 by Noemi Bernal CNM) Paternal Grandmother , 55 Breast cancer Personal history of malignant neoplasm Father Hypertension Maternal Grandfather , 70s Myocardial infarct Social History Smoking/Tobacco Use Status: Never Smoking risk assessment performed?: Yes Alcohol Intake: former Drug use: Never Substance use type: does not use Counseling given: No Details: not while Seatbelt use: always Do you feel safe at home: Yes Do you feel safe in your relationship?: Yes Female Reproductive History Menstrual control method: none History History 4 Para 1 Hx # Term Pregnancies 1 Multiple births 0 Hx # Pregnancies 0 Ectopic pregnancies 0 AB induced 0 Hx Number of Living Children 1 AB spontaneous 2 Past Pregnancies Del. Date GA/Weeks # Outcome Route Wgt Sex Labor Lgth Anesthesia Location [facility] 01/30/10 40 No Successful vaginal 7 lb 5 oz Male 5.[address] Lor Conklin Delivery Date: 01/30/10 Placental hematoma, bleeding in 2nd trimester. Hospitalized x 1 week at [facility] [place]. Bedrest x last three months. Zully Boykin DS: Data Vitals/I&O Vitals and I&O: Vital Signs Temperature 98.8 F 08/29/21 08:01 Pulse 78 08/29/21 15:39 Pulse Rhythm Regular 08/29/21 07:54 Respiratory Rate 16 08/29/21 08:01 Respiratory Depth Normal 08/29/21 07:54 Blood Pressure 105/61 08/29/21 15:39 Pulse Oximetry 97 10/20/21 09:58 Oxygen Delivery Method Room Air 08/29/21 07:54 Oxygen Flow Rate 0 08/29/21 07:54 Pain Level 5 08/29/21 10:47 Intake & Output 08/28/21 08/29/21 08/29/21 23:59 11:59 23:59 Intake Total 400 / 400 250 / 250 Output Total 350 / 350 700 / 700 Balance 50 / 50 -450 / -450 Weight 146 lb 143 lb Intake: Oral 400 / 400 250 / 250 Output: Urine 700 / 700 Emesis 350 / 350 Other: Urine Color Pale Yellow Data Completed and Pending Labs on day of discharge: Labs from last 24 hours 08/29/21 08/29/21 08/29/21 07:35 07:35 01:00 WBC 12.58 H RBC 4.22 Hgb 13.5 Hct 39.7 MCV 94.1 MCH 32.0 MCHC 34.0 RDW 12.5 Plt Count 172 MPV 11.7 H COVID-19 Source Nasal/Nares SARS-CoV-2 (PCR) Negative Patient ABO/Rh A Positive Antibody Screen NEGATIVE
[2021-08-30 14:28] VITALS: BP 129/88; PULSE 81
[2021-08-30 14:51] VITALS: BP 122/85; PULSE 71
== END 2021-08-29 19:30 | disposition home or self-care (01) | DRG 807 ==
PROVIDERS: Admitting Provider Advanced Practice Midwife; PCP Family Medicine; Visit Provider Advanced Practice Midwife
DX: O36.8130 Decreased fetal movements, third trimester, not applicable or unspecified (principal); Z37.0 Single live birth; Z3A.40 40 weeks gestation of pregnancy; Z20.822 Contact with and (suspected) exposure to COVID-19; O76 Abnormality in fetal heart rate and rhythm complicating labor and delivery
CPT/HCPCS: 85027; 86850; 86900; 86901; 87635; 59025; G0378; J2590

== ENCOUNTER 2023-10-27 14:39 | Outpatient (REF) | payer MEDICAID, SELFPAY ==
[2023-10-27 17:52] LABS: *AMPHETAMINES SCREEN URINE Negative (Negative); *BARBITURATES SCREEN URINE Negative (Negative); *BENZODIAZEPINES SCREEN URINE Negative (Negative); Cannabinoids THC Negative (Negative); Cocaine Screen,Urine Negative (Negative); METHADONE URINE SCREEN Negative (Negative); OPIATES URINE SCREEN Negative (Negative); Tricyclic Antidepressants Negative (Negative)
[2023-10-29 14:38] LABS: Chlamydia Result Negative (Negative); GC Result Negative (Negative)
[2023-11-02 04:14] LABS: Buprenorphine Negative ng/mL (Cutoff: 5.0)
== END 2023-10-27 14:40 | disposition home or self-care (01) ==
LOC: LBN 14:39
PROVIDERS: Advanced Practice Midwife; Visit Provider Obstetrics & Gynecology
DX: Z34.91 Encounter for supervision of normal pregnancy, unspecified, first trimester (principal); Z11.3 Encounter for screening for infections with a predominantly sexual mode of transmission; Z3A.10 10 weeks gestation of pregnancy
CPT/HCPCS: 80307; 80348; 87491; 87591; 87086

== ENCOUNTER 2023-11-06 09:27 | Outpatient (CLI) | payer MEDICAID, SELFPAY ==
[2023-11-06 09:45] LABS: Abs Immature Grans 0.02 10^3/uL (0.0-0.06); Absolute Basophil Count 0.02 10^3/uL (0.0-0.2); Absolute Eosinophil Count 0.05 10^3/uL (0.0-0.7); Absolute Lymphocyte Count 2.13 10^3/uL (1.2-3.4); Absolute Monocyte Count 0.47 10^3/uL (0.1-0.8); Absolute Neutrophil Count 5.69 10^3/uL (1.2-6.7); Basophils % 0.2; Eosinophils % 0.6; HCT 38.8 % (36.0-46.0); Immature Grans % 0.2; Lymphocytes % 25.4; MCH 30.9 pg (27.0-33.0); MCHC 33.5 % (32.0-36.0); MCV 92 fL (80-95); MPV 9.7 fL (8.0-11.0); Monocytes % 5.6; Platelet Count 209 10^3/uL (130-400); RBC 4.21 10^6/uL (3.93-5.22); RDW 12.3 % (11.7-14.6); RDW-SD 41.5 fL; WBC 8.38 10^3/uL (4.4-10.8)
[2023-11-06 10:20] LABS: Panorama Kit Sent via Fed Ex
[2023-11-06 18:32] LABS: Hepatitis B Surface Ag Negative (Negative)
[2023-11-06 18:39] LABS: HIV-1/2 Ag & Ab Screen Negative (Negative)
[2023-11-06 19:06] LABS: Hepatitis C Ab w Rflx HCV PCR Negative (Negative)
[2023-11-07 10:14] LABS: Varicella IgG Antibody Positive (See Note)
[2023-11-07 10:31] LABS: Rubella IgG Ab (UVM) Positive (See Note)
[2023-11-09 15:49] LABS: Syphilis IgG w/Reflex Nonreactive (Nonreactive)
== END 2023-11-06 09:28 | disposition home or self-care (01) ==
LOC: LBO 09:28
PROVIDERS: Advanced Practice Midwife; Visit Provider Advanced Practice Midwife
DX: Z34.91 Encounter for supervision of normal pregnancy, unspecified, first trimester (principal); Z36.89 Encounter for other specified antenatal screening; Z3A.11 11 weeks gestation of pregnancy
CPT/HCPCS: 36415; 86787; 86803; 86850; 86900; 86901; 87340; 87389; 85025; 86762; 86780

== ENCOUNTER → 2024-01-02 00:27 | Outpatient (CLI) | payer MEDICAID, SELFPAY ==
--- NOTE | 2024-01-02 06:45 | DI.US_ITS ---
Exam(s) US OB 2-3 TRIMESTER EXAM: US OB 2-3 TRIMESTER CLINICAL HISTORY: anatomy/morphology,Z34.91. TECHNIQUE: Transabdominal obstetrical ultrasound performed. COMPARISON: US US OB F/U FACIAL/LVOT/RVOT from 06/15/2021 FINDINGS: Number of fetuses: 1 position: VARIED heart rate: 141bpm Placental location: There is a grade 0 anterior placenta. The placental tip is 3.5 cm from the inter nal os. No evidence of previa. Amniotic fluid index: Amount of fluid is within normal limits. ANATOMICAL SURVEY: Within normal limits. BIOMETRIC DATA: BPD: 4.4cm, 19weeks 2days HC: 17.33cm, 19weeks 6days AC: 14.89cm, 20weeks 1day FL: 3.16cm, 19weeks 6days Cisterna magna: 3.9mm Cerebellum: 1.82cm Lateral ventricle: 6 mm EFW: 323.62g, 0.71lb, 35.2% Composite Age: 19weeks 6days DICK: 05/22/2024 Heart Rate: 141bpm ANATOMICAL SURVEY: Four-chambered heart: Unremarkable. RVOT: Unremarkable. LVOT: Unremarkable. Left-sided stomach: Unremarkable. urinary bladder: Unremarkable. Bilateral kidneys: Unremarkable. Three-vessel cord: Unremarkable. Cord insertion: Unremarkable. Posterior fossa: Unremarkable. ventricles: Unremarkable. nose/lips: Unremarkable. Palate: Unremarkable. spine: Unremarkable. Two arms and two legs: Unremarkable. IMPRESSION: 1. Single live intrauterine gestation as above. 2. Normal anatomic survey. DATA REPOSITORY:
== END ==
PROVIDERS: Visit Provider Advanced Practice Midwife
DX: Z34.91 Encounter for supervision of normal pregnancy, unspecified, first trimester (principal)
CPT/HCPCS: 76805

== ENCOUNTER 2024-03-01 05:02 | Outpatient (CLI) | payer MEDICAID, SELFPAY ==
[2024-03-01 15:19] LABS: Abs Immature Grans 0.06 10^3/uL (0.0-0.06); Absolute Basophil Count 0.03 10^3/uL (0.0-0.2); Absolute Eosinophil Count 0.05 10^3/uL (0.0-0.7); Absolute Lymphocyte Count 1.95 10^3/uL (1.2-3.4); Absolute Monocyte Count 0.49 10^3/uL (0.1-0.8); Basophils % 0.3; Eosinophils % 0.5; HGB 12.8 g/dL (11.2-15.7); Immature Grans % 0.5; Lymphocytes % 17.9; MCH 31.8 pg (27.0-33.0); MCHC 33.7 % (32.0-36.0); MCV 94 fL (80-95); MPV 10.9 fL (8.0-11.0); Monocytes % 4.5; Neutrophils % 76.3; Platelet Count 194 10^3/uL (130-400); RBC 4.03 10^6/uL (3.93-5.22); RDW 12.5 % (11.7-14.6); RDW-SD 43.2 fL; WBC 10.91 10^3/uL (4.4-10.8)
[2024-03-01 15:21] LABS: Absolute Neutrophil Count 8.32 10^3/uL (1.2-6.7)
[2024-03-01 15:33] LABS: Glucose,1 Hr (Glucola) 125 mg/dL (80-140)
== END 2024-03-01 05:03 | disposition home or self-care (01) ==
LOC: LBO 05:02
PROVIDERS: Visit Provider Obstetrics & Gynecology
DX: O09.90 Supervision of high risk pregnancy, unspecified, unspecified trimester (principal)
CPT/HCPCS: 36415; 82950; 85025

== ENCOUNTER 2024-04-26 12:00 | Outpatient (REF) | payer MEDICAID, SELFPAY | END 2024-04-26 12:01 | disposition home or self-care (01) | LOC: LBN 12:00 | PROVIDERS: Visit Provider Obstetrics & Gynecology Gynecology | DX: O09.93 Supervision of high risk pregnancy, unspecified, third trimester (principal); Z36.85 Encounter for antenatal screening for Streptococcus B; Z3A.36 36 weeks gestation of pregnancy | CPT/HCPCS: 87081 ==

== ENCOUNTER 2024-05-17 00:38 | Inpatient (IN) | payer MEDICAID, SELFPAY ==
--- NOTE | 2024-05-16 23:58 | HPE_ITS ---
Date of service: 05/16/24 Time of Service: 23:58 Assessment and Plan Assessment and plan (1) HRP (high risk ): Status: Acute Assessment and plan: at 39-3/7 weeks, early labor. History of rapid labors. Ambulate, monitor as needed. Anticipate vaginal delivery. Patient has not had epidural with previous pregnancies, and is planning an unmedicated . IV access will be attempted via ultrasound guidance. OB-HPI Labor/Delivery History of Present Illness Reason for Visit: rule out labor Chief Complaint: Uterine Contractions (Every 4 minutes); Maternal Discomfort , Associated Signs and Symptoms of Maternal Discomfort: Pelvic pressure. DICK Calculator Estimated Delivery Date Method Current WG Current Estimate 05/20/24 LMP (Certain) 39w 4d Other Estimates 05/20/24 Ultrasound #1 39w 4d Comments: Patient called this evening with onset of uterine contractions, they were approximately every 4 minutes. They last for approximately 30 to 60 seconds. She has a history of relatively rapid labors. She is here for evaluation and rule out labor. 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 cfDNA- low risk, SMA____previously known to be CF neg Review of Systems Constitutional Constitutional: Reports as per HPI and Reports system reviewed and no additional complaints, except as documented ENT Ears, Nose, Mouth, and Throat: Reports system reviewed and no additional complaints, except as documented Cardiovascular Cardiovascular: Reports system reviewed and no additional complaints, except as documented Respiratory Respiratory: Reports system reviewed and no additional complaints, except as documented Gastrointestinal Gastrointestinal: Reports system reviewed and no additional complaints, except as documented Genitourinary Genitourinary: Reports as per HPI Musculoskeletal Musculoskeletal: Reports system reviewed and no additional complaints, except as documented Neurologic Neurologic: Reports system reviewed and no additional complaints, except as documented PFSH All Active Problems (Updated 05/17/24 @ 00:43 by Marta Anders DO) HRP (high risk ) (Acute) AMA Medical History Term of female History of molar Family history of breast cancer PGM 55 Family History Paternal Grandmother , 55 Breast cancer Personal history of malignant neoplasm Father Hypertension Maternal Grandfather , 70s Myocardial infarct Social History Smoking/Tobacco Use Status: Never Smoking risk assessment performed?: Yes Alcohol Intake: former Drug use: Never Substance use type: does not use Counseling given: No Details: not while Housing: house Seatbelt use: always Do you feel safe at home: Yes Do you feel safe in your relationship?: Yes Female Reproductive History Menstrual control method: none History History 5 Para 2 Hx # Term Pregnancies 2 Multiple births 0 Hx # Pregnancies 0 Ectopic pregnancies 0 AB induced 0 Hx Number of Living Children 2 AB spontaneous 2 Past Pregnancies Del. Date GA/Weeks # Preg Succ Route Wgt Sex Labor Lgth Anesth esia Location [facility] 01/30/10 40 No vaginal 7 lb 5 oz Male 5.[address] Jessy Conklin 07/14/19 4 03/14/20 10 08/29/21 39 No vaginal 6 lb 5.06 oz Female 6 hours JAZZMINE Marquez Delivery Date: 01/30/10 Last Updated by: Zully Kinney Placental hematoma, bleeding in 2nd trimester. Hospitalized x 1 week at [facility] [place]. Bedrest x last three months. [place] Delivery Date: 07/14/19 Last Updated by: Noemi Carl CNM IUD removal indicated , regular period Delivery Date: 03/14/20 Last Updated by: Noemi Carl CNM [place] Delivery Date: 08/29/21 Last Updated by: MARIYA Salgado Meds Allergies and Home Medications Allergies Allergy/AdvReac Type Severity Reaction Status Date / Time No Known Allergies Allergy Unverified 05/10/24 10:47 Home Medications Medication Instructions Recorded Confirmed Type prenat.vits,brenda,oyl-mpfp-vgxgl 1 tab PO DAILY 01/02/21 05/17/24 History lactobacillus combination no.8 3 3,000 mmu cells PO DAILY PRN 03/06/21 05/17/24 History billion cell capsule (Adult Probiotic) cholecalciferol (vitamin D3) 25 25 mcg PO DAILY 09/25/23 05/17/24 History mcg (1,000 unit) tablet valacyclovir 1 gram tablet 2,000 mg (2 x 1 gram) PO BID #4 04/13/24 05/17/24 Rx tabs Exam Physical Exam Vital signs: BP 124/77, P 68 Vital Signs Reviewed: Yes Constitutional Constitutional: no acute distress Detailed Labor and Delivery Exam Dilation: 3 Effacement (%): 70 station: -2 Position: OA Cervix position: anterior Consistency: soft Mac Score: Cervical Points Exam 0 1 2 3 Dilation Closed 1-2cm 3-4 cm 5-6cm Effacement 0-30% 40-50% 60-70% 80% Consistency Firm Medium Soft Station -3 -2 -1,0 +1,+2 Position Posterior Mid Anterior MAC Score(Cervical Ripeness Score): 9 Amniotic Membrane Status: Intact Monitor Mode: External Contraction Frequency(min): 3 Contraction Intensity: Mild/Moderate Fetus A Heart Rate Baseline: 125 Monitor Accelerations: 15 X 15 Monitor Decelerations: None Variability: Moderate (6-25 BPM) Presentation: Cephalic Categories: Category I Est. Weight: 7 lb HEENT Exam HEENT Exam: Normal Neck Exam Neck Exam: Normal Respiratory Exam Respiratory Exam: Normal Cardiovascular Exam Cardiovascular Exam: Normal Abdominal Exam Abdominal Exam: Normal Extremities Exam Extremities Exam: Normal Skin Exam Skin Exam: Normal Risk Assessment Risk for Shoulder Dystocia Historical/Initial OB: NEGATIVE FOR: Pelvic Abnormality, Pre- BMI>30, Previous Shoulder Dystocia or Previous Macrosomia Risk for Pre-Eclampsia Yes, if one or more: NEGATIVE FOR: Hx Pre-E/Gest HTN, Chronic HTN, Multiple Gestation, Pre-gestational DM, Renal Disease, Systemic Lupus or APA Syndrome Yes, if 2 or more: POSITIVE FOR: Age>= 35 yrs; NEGATIVE FOR: Nulliparity, >10yr btwn pregnancies, BMI>30, ethinicty, Mother/Sister w/ Pre-E or Previous IUGR Risk for Post- Hemorrhage Initial: NEGATIVE FOR: Multiple Gestation, Previous PPH, Known Clotting Deficiency, Grand Multiparity or Anticoagulation Risks Reviewed Risks Reviewed Upon Admission: Yes
[2024-05-17] VITALS (7 sets, daily range): BP systolic 97–132; BP diastolic 54–77; PULSE 59–111; RESP 16; TEMP 36.6–37.1; O2SAT 98
[2024-05-17 01:10] LABS: HCT 39.4 % (36.0-46.0); HGB 13.5 g/dL (11.2-15.7); MCH 31.6 pg (27.0-33.0); MCHC 34.3 % (32.0-36.0); MCV 92 fL (80-95); MPV 11.7 fL (8.0-11.0); Platelet Count 159 10^3/uL (130-400); RBC 4.27 10^6/uL (3.93-5.22); RDW 12.5 % (11.7-14.6); RDW-SD 42.3 fL
--- NOTE | 2024-05-17 06:26 | PGE_ITS ---
Date of service: 05/17/24 Time of Service: 06:26 Pelvic Exam Dilation: 3 Effacement (%): 70 station: -2 Cervix Position: anterior Fetus A Heart Rate Baseline: 125 FHR Rhythm: Regular Assessment and Plan Assessment and plan (1) HRP (high risk ): Status: Acute Assessment and plan: Term , advanced maternal age. (2) Uterine contractions: Status: Acute Assessment and plan: Contractions, will reevaluate. Possible Pitocin augmentation versus artificial rupture versus discharge home if no progress Objective Abnormal lab results 05/17/24 Range/Units 01:00 WBC 13.00 H (4.4-10.8) 10^3/uL MPV 11.7 H (8.0-11.0) fL Temp Pulse BP 98.4 F 66 111/59 L 05/17/24 06:12 05/17/24 06:12 05/17/24 06:12 Laboratory Results WBC 13.00 10^3/uL (4.4-10.8) H 05/17/24 01:00 RBC 4.27 10^6/uL (3.93-5.22) 05/17/24 01:00 Hgb 13.5 g/dL (11.2-15.7) 05/17/24 01:00 Hct 39.4 % (36.0-46.0) 05/17/24 01:00 MCV 92 fL (80-95) 05/17/24 01:00 MCH 31.6 pg (27.0-33.0) 05/17/24 01:00 MCHC 34.3 % (32.0-36.0) 05/17/24 01:00 RDW 12.5 % (11.7-14.6) 05/17/24 01:00 Plt Count 159 10^3/uL (130-400) 05/17/24 01:00 MPV 11.7 fL (8.0-11.0) H 05/17/24 01:00 ABO/Rh A Positive 05/17/24 01:00 Antibody Screen NEGATIVE 05/17/24 01:00 Subjective Interval history since last seen: Patient seen and examined this morning. Rested for the last few hours. Contr actions have decreased. Cervical exam is unchanged. Baby is moving and active. We discussed opportunities for Pitocin augmentation, artificial rupture of membranes, ambulation, watchful waiting, discharge home. At this point, she will go back on the monitor to evaluate contraction pattern and consider her opportunities. All questions were answered Results Hemoglobin/Hematocrit: Hgb 13.5 g/dL (11.2-15.7) 05/17/24 01:00 Hct 39.4 % (36.0-46.0) 05/17/24 01:00 Abnormal Lab Findings: Abnormal Labs 05/17/24 01:00 WBC 13.00 H MPV 11.7 H
--- NOTE | 2024-05-17 09:02 | DSE_ITS ---
Date of service: 05/17/24 Time of Service: 09:03 DS: Diagnosis Discharge Diagnosis (1) HRP (high risk ): Status: Acute (2) Uterine contractions: Status: Deleted Discharge Plan Disposition Patient Disposition: Home Condition: Good Discharge Details Reason For Visit: Labor Admit Date/Time: 05/17/24 00:38 Admit Provider: Marta Anders Attending Provider: Marta Anders Primary Care Provider: Unknown,Unknown Hospital Course Hospital Course: Pt is a 38yo female at 39-3/7 weeks who presented to the 05/16/24 in the evening with several hours of painful regular contractions. Her SVE was 3cm dilated on admission. Her contractions diminished in frequency and intensity during the night and by the morning of 05/17/24 had completely subsided. HR reassuring. No change in SVE. Pt was given option of discharge to home vs induction of labor and she requested discharge to home. SHe was counseled regarding signs and sx of labor and will call the data control assistant provider with painful regular contractions, bloody show or SROM. Home Meds and New Rx's Prescriptions: No Action Adult Probiotic 3 billion cell capsule 3,000 mmu cells PO DAILY PRN Patient Comments: pt states she has not taken this med for a couple weeks now prenat.vits,brenda,yvy-imhe-cxhdz Tablet 1 tab PO DAILY cholecalciferol (vitamin D3) 25 mcg (1,000 unit) tablet 25 mcg PO DAILY Discharge Instructions Stand Alone Forms: Center Observation Activity:: Activity as Tolerated Equipment/Supplies:: No Equipment Needed Diet:: As Tolerated Discharge Orders Discharge Orders: Discharge Order (Routine); Ordered 05/17/24 Ordered By: Ro Neville Discharge Data Discharge Date/Time-TO BE ENTERED AT DEPARTURE: 05/17/24 09:06 DS: Summary Time Spent with Patient providing and/or coordinating discharge services: Less than 30 minutes Status at Discharge Functional status at discharge: independent ambulation Overall status at discharge: patient is back to baseline Mental Status: mental status grossly normal Speech and Movement: speech and movement normal Mood: congruent mood Affect: normal affect Quality:SDOH Health Related Social Needs: No Data to Display Exam Const General: no acute distress Nutritional Appearance: average body habitus Orientation: alert, awake and oriented x3 Resp Effort & Inspection: normal respiratory effort General: deferred Skin General skin exam: no rashes or lesions noted Extrem General: normal to inspection Psych Appearance: grossly normal Mental Status: mental status grossly normal Speech and Movement: speech and movement normal Mood: congruent mood Affect: normal affect Attitude: cooperative DS: Data Vitals/I&O Vitals and I&O: Vital Signs Temperature 98.2 F 05/17/24 07:31 Temperature 98.7 F 05/17/24 01:11 Temperature Source Oral 05/17/24 07:31 Pulse 111 H 05/17/24 07:32 Pulse 68 05/17/24 01:11 Pulse Rhythm Regular 05/17/24 07:30 Respiratory Rate 16 05/17/24 07:31 Blood Pressure 110/59 L 05/17/24 07:31 Blood Pressure 124/77 05/17/24 01:11 Blood Pressure Mean 92 05/17/24 00:33 Pulse Oximetry 98 05/17/24 07:31 Oxygen Delivery Method Room Air 05/16/24 22:56 Oxygen Flow Rate 0 05/16/24 22:56 Intake & Output 05/16/24 05/16/24 05/17/24 11:59 23:59 11:59 Output Total 800 / 800 Balance -800 / -800 Weight 150 lb Output: Urine 800 / 800 Other: Urine Color Yellow Yellow Data Completed and Pending Labs on day of discharge: Labs from last 24 hours 05/17/24 01:00 WBC 13.00 H RBC 4.27 Hgb 13.5 Hct 39.4 MCV 92 MCH 31.6 MCHC 34.3 RDW 12.5 Plt Count 159 MPV 11.7 H ABO/Rh A Positive Antibody Screen NEGATIVE PFSH All Active Problems (Updated 05/27/24 @ 00:09 by LICHA REED) Vaginal delivery (Acute) Term (Acute) HRP (high risk ) (Acute) AMA Medical History Term of female History of molar Family history of breast cancer PGM 55 Family History Paternal Grandmother , 55 Breast cancer Personal history of malignant neoplasm Father Hypertension Maternal Grandfather , 70s Myocardial infarct Social History Smoking/Tobacco Use Status: Never Smoking risk assessment performed?: Yes Alcohol Intake: former Drug use: Never Substance use type: does not use Counseling given: No Details: not while Housing: house Seatbelt use: always Do you feel safe at home: Yes Do you feel safe in your relationship?: Yes Female Reproductive History Menstrual control method: none History History 5 Para 3 Hx # Term Pregnancies 3 Multiple births 0 Hx # Pregnancies 0 Ectopic pregnancies 0 AB induced 0 Hx Number of Living Children 3 AB spontaneous 2 Past Pregnancies Del. Date GA/Weeks # Preg Succ Route Wgt Sex Labor [facility] 40 No vaginal 7 lb 5 oz Male 5.[address] Jessy Conklin 07/14/19 4 03/14/20 10 08/29/21 39 No vaginal 6 lb 5.06 oz Female 6 hours JAZZMINE Marquez 05/25/24 40 No Yes vaginal 6 lb 9 oz Female aoc Delivery Date: 01/30/10 Last Updated by: Zully Kinney Placental hematoma, bleeding in 2nd trimester. [place] [facility] [place] Delivery Date: 07/14/19 Last Updated by: Noemi Carl CNM IUD removal indicated , regular period Delivery Date: 03/14/20 Last Updated by: Noemi Carl CNM [place] Delivery Date: 08/29/21 Last Updated by: MARIYA Salgado Delivery Date: 05/25/24 Last Updated by: Ro Neville MD Uncomplicated. Aviva Time Spent with Patient Time Spent with Patient: <45 minutes Time was spent: preparing to see the patient(eg.review tests), obtaining and/or reviewing separately otained hiistory, referring, communicating with other health health care manager and indepentently interpreting results
== END 2024-05-17 09:06 | disposition home or self-care (01) | DRG 833 ==
PROVIDERS: Admitting Provider Obstetrics & Gynecology; Visit Provider Obstetrics & Gynecology
DX: O09.523 Supervision of elderly multigravida, third trimester; O09.93 Supervision of high risk pregnancy, unspecified, third trimester; Z3A.39 39 weeks gestation of pregnancy; O47.1 False labor at or after 37 completed weeks of gestation
CPT/HCPCS: 85027; 86850; 86900; 86901; G0378

== ENCOUNTER 2024-05-25 03:56 | Inpatient (IN) | payer MEDICAID, SELFPAY ==
[2024-05-25] VITALS (17 sets, daily range): BP systolic 98–159; BP diastolic 50–120; PULSE 46–103; RESP 16–18; TEMP 36.6–37.4; O2SAT 97
--- NOTE | 2024-05-25 04:19 | HPE_ITS ---
Date of service: 05/25/24 Time of Service: 04:19 Assessment and Plan Assessment and plan (1) Uterine contractions: Status: Acute (2) Term : Status: Acute OB-HPI Labor/Delivery History of Present Illness Reason for Visit: Labor Chief Complaint: Uterine Contractions. DICK Calculator Estimated Delivery Date Method Current WG Current Estimate 05/20/24 LMP (Certain) 40w 5d Other Estimates 05/20/24 Ultrasound #1 40w 5d History of Present Expected Delivery Route/Plan : MD care will breast and bottle feed (has struggled with breast feeding X 2) BG Jitendra Tabor Specific Issues/Plan 1. cfDNA- low risk, SMA____previously known to be CF neg Narrative: Patient is a 38-year-old G3, P2 female currently 40 W5D EGA who awoke this morning with onset of painful regular contractions. No vaginal bleeding no loss of amniotic fluid. Informed Consent Informed Consent: Risk,Benefits,Alternatives Discussed (Anticipate vaginal delivery. Patient declines epidural.) Review of Systems All systems reviewed & are unremarkable except as noted in HPI and below PFSH All Active Problems (Updated 05/25/24 @ 04:27 by Ro Neville MD) Term (Acute) Uterine contractions (Acute) HRP (high risk ) (Acute) AMA Medical History Term of female History of molar Family history of breast cancer PGM 55 Family History Paternal Grandmother , 55 Breast cancer Personal history of malignant neoplasm Father Hypertension Maternal Grandfather , 70s Myocardial infarct Social History Smoking/Tobacco Use Status: Never Smoking risk assessment performed?: Yes Alcohol Intake: former Drug use: Never Substance use type: does not use Counseling given: No Details: not while Housing: house Seatbelt use: always Do you feel safe at home: Yes Do you feel safe in your relationship?: Yes Female Reproductive History Menstrual control method: none History History 5 Para 2 Hx # Term Pregnancies 2 Multiple births 0 Hx # Pregnancies 0 Ectopic pregnancies 0 AB induced 0 Hx Number of Living Children 2 AB spontaneous 2 Past Pregnancies Del. Date GA/Weeks # Preg Succ Route Wgt Sex Labor Lgth Anesth esia Location Prov Complic 01/30/10 40 No vaginal 7 lb 5 oz Male 5.[address] Jessy Conklin 07/14/19 4 03/14/20 10 08/29/21 39 No vaginal 6 lb 5.06 oz Female 6 hours JAZZMINE Marquez Delivery Date: 01/30/10 Last Updated by: Zully Kinney Placental hematoma, bleeding in 2nd trimester. [place] [facility] [place] x last three months. [place] Delivery Date: 07/14/19 Last Updated by: Noemi Carl CNM IUD removal indicated , regular period Delivery Date: 03/14/20 Last Updated by: Noemi Carl CNM [place] Delivery Date: 08/29/21 Last Updated by: MARIYA Salgado [facility] Allergies and Home Medications Allergies Allergy/AdvReac Type Severity Reaction Status Date / Time No Known Allergies Allergy Unverified 05/24/24 13:54 Home Medications ?Medication ?Instructions ?Recorded ?Confirmed ?Type prenat.vits,brenda,twq-fnyz-lmwkx 1 tab PO DAILY 01/02/21 05/25/24 History lactobacillus combination no.8 3 3,000 mmu cells PO DAILY PRN 03/06/21 05/25/24 History billion cell capsule (Adult Probiotic) cholecalciferol (vitamin D3) 25 25 mcg PO DAILY 09/25/23 05/25/24 History mcg (1,000 unit) tablet valacyclovir 1 gram tablet 2,000 mg (2 x 1 gram) PO BID #4 04/13/24 05/25/24 Rx tabs Exam Physical Exam Vital Signs Reviewed: Yes Constitutional Constitutional: no acute distress (Tolerating contractions.) Detailed Labor and Delivery Exam Dilation: 4 Effacement (%): 100 station: -1 Mac Score: Cervical Points Exam 0 1 2 3 Dilation Closed 1-2cm 3-4 cm 5-6cm Effacement 0-30% 40-50% 60-70% 80% Consistency Firm Medium Soft Station -3 -2 -1,0 +1,+2 Position Posterior Mid Anterior MAC Score(Cervical Ripeness Score): 7 Amniotic Membrane Status: Intact Monitor Mode: External Contraction Frequency(min): Every 3 minutes Contraction Duration(sec): 60 Contraction Intensity: Moderate Fetus A Heart Rate Baseline: 140 Monitor Accelerations: 15 X 15 Monitor Decelerations: Early Variability: Moderate (6-25 BPM) Presentation: Cephalic Est. Weight: 3600 lb Assessment Note: Category 1 tracing. Patient will ambulate in the room with intermittent Doppler auscultation with heart rate Neck Exam Neck Exam: Not Done Chest/Brest/Axilla Exam Chest Exam: Not Done Respiratory Exam Respiratory Exam: Normal Cardiovascular Exam Cardiovascular Exam: Normal Abdominal Exam Abdominal Exam: Normal Rectal Exam Rectal Exam: Not Done Exam Exam: Normal Extremities Exam Extremities Exam: Normal Back/Spine/Pelvis Exam Back Exam: Normal Pelvis Adequate: Yes Skin Exam Skin Exam: Normal Neurological Exam Neurological Exam: Normal (Bilateral patellar reflexes brisk 1 beat of clonus) Psychiatric Exam Psychiatric Exam: Normal Results Results Group Beta Strep: Negative Blood Type: A+ Rubella Status: Immune Varicella Immunity: Immune Risk Assessment Risk for Shoulder Dystocia Historical/Initial OB: NEGATIVE FOR: Pelvic Abnormality, Pre- BMI>30, Previous Shoulder Dystocia or Previous Macrosomia 36 Weeks: NEGATIVE FOR: Current Gestational DM, EFW>4500gms or Maternal Weight Gain>40lbs 40 Weeks: NEGATIVE FOR: EFW> 4500 gms, Maternal Weight Gain >40lb or Post Dates Increased Risk?: No Risk for Pre-Eclampsia Daily Dose ASA Indicated: Yes Yes, if one or more: NEGATIVE FOR: Hx Pre-E/Gest HTN, Chronic HTN, Multiple Gestation, Pre-gestational DM, Renal Disease, Systemic Lupus or APA Syndrome Yes, if 2 or more: POSITIVE FOR: Age>= 35 yrs; NEGATIVE FOR: Nulliparity, >10yr btwn pregnancies, BMI>30, ethinicty, Mother/Sister w/ Pre-E or Previous IUGR Risk for Post- Hemorrhage Initial: NEGATIVE FOR: Multiple Gestation, Previous PPH, Known Clotting Deficiency, Grand Multiparity or Anticoagulation At Risk?: Yes Risks Reviewed Risks Reviewed Upon Admission: Yes
[2024-05-25 04:21] LABS: HCT 40.8 % (36.0-46.0); HGB 14.4 g/dL (11.2-15.7); MCH 32.1 pg (27.0-33.0); MCHC 35.3 % (32.0-36.0); MCV 91 fL (80-95); MPV 12.1 fL (8.0-11.0); Platelet Count 172 10^3/uL (130-400); RBC 4.48 10^6/uL (3.93-5.22); RDW 12.6 % (11.7-14.6); RDW-SD 41.8 fL; WBC 13.97 10^3/uL (4.4-10.8)
[2024-05-25] MEDS: Oxytocin/Normal Saline 30 UNIT/500 ML BAG 334 UNITS IV (05:30)
--- NOTE | 2024-05-25 05:33 | W.OBDELIVERY ---
Date of service: 05/25/24 Time of Service: 07:51 OB Labor/ Delivery Information Baby A Delivery Delivery Method: Spontaneaous Presentation: Cephalic Cephalic Position: Vertex Vertex Position: Left Occipital Posterior Breech Position: N/A Cord Description-Baby A: 3 Vessels Cord Description Comment: Central cord insertion, placenta intact Amniotic Fluid: Clear Estimated Blood Loss: 200 Delivery Outcome: Liveborn Infant Transferred: Remains with Mother Providers Doctor: Ro Neville Labor/Delivery Information Number of Babies in Womb: 1 Steroids Given: None Reason Steroids Not Administered: N/A Group Beta Strep: Negative Antibiotics Administered: No Rubella Status: Immune Blood Type: A+ Varicella Immunity: Immune Medication in Delivery: Oxytocin after delivery of infant Born En Route: No Maternal Complications: None Shoulder Dystocia: No Stages of Labor Onset of Labor Date: 05/25/24 Onset of Labor Time: 01:00 Complete Dilatation Date: 05/25/24 Complete Dilatation Time: 04:37 Labor - Stage 1 Duration: 3 hours and 37 minutes ROM Baby A: 05/25/24 ROM Baby A: 04:37 Baby A Infant Gender: Female Gestational Status: Term (39-41.6 wks) Length-Baby A: 18.9 in Score-1 Minute Interval(Baby A) Heart Rate-1 minute: 100 BPM or Greater Respiratory Effort- 1 minute: Spontaneous/Strong Cry Muscle Tone-1 minute: Active Movement Reflex Response-1 minute: Prompt Response Color-1 minute: Bluish Hands or Feet
[2024-05-25] MEDS: Dibucaine 1% 28 GM TUBE TP ×2 (06:15→20:36)
[2024-05-25] MEDS: Hamamelis Leaf/Glycerin 100 EACH BOX PR (06:17)
[2024-05-25] MEDS: Ibuprofen 600 MG TAB PO ×2 (06:17→18:41)
[2024-05-25] MEDS: Acetaminophen 325 MG TAB 650 MG PO ×2 (06:17→18:40)
[2024-05-26] MEDS: Acetaminophen 325 MG TAB 650 MG PO (00:11)
[2024-05-26] MEDS: Ibuprofen 600 MG TAB PO (00:12)
--- NOTE | 2024-05-26 08:51 | W.OBNST ---
Date of service: 05/26/24 Time of Service: 08:51 NST Evaluation Reason for NST Reasons for Nonstress Test: OTHER, SEE COMMENT Reason for NST Other: Onset labor Gestational Age Gestational Age in Weeks and Days: 40 Weeks and 5Days Test and Monitor Explained Test/Monitor Explained: Test Explained, Monitor Explained and Patient Verbalized Understanding Vital Signs Blood Pressure: 108/78 Pulse: 77 Temperature: 97.9 F NST Information Date on Monitor: 05/25/24 Time on Monitor: 03:14 Date off Monitor: 05/25/24 Time off Monitor: 03:34 Total Time on Monitor: 20 NST Interventions: None Contraction Frequency: 2-5 NST Evaluation Patient States Movement: Present FHR Baseline: 125 Variability: Moderate 6-25 bpm Accelerations: 15x15 Decelerations: Early NST Results: Reactive NST Evaluation Baby B Patient States Movement: Present Note Ultrasound Done: N/A. NST Note Note: Patient presented with contractions and was noted to be in active labor. She was admitted and underwent spontaneous vaginal delivery without complications on the morning of 05/25/2024 NST Reviewed and Verified by: Ro Neville
[2024-05-26 08:52] VITALS: BP 108/78; PULSE 77; TEMP 36.6
--- NOTE | 2024-05-26 08:54 | DSE_ITS ---
Date of service: 05/26/24 Time of Service: 08:54 DS: Diagnosis Discharge Diagnosis (1) Uterine contractions: Status: Acute (2) Term : Status: Acute (3) Vaginal delivery: Status: Acute Discharge Plan Disposition Patient Disposition: Home Condition: Improving Discharge Details Reason For Visit: TOÑA GOLDEN 40w5d Admit Date/Time: 05/25/24 03:56 Admit Provider: Ro Neville Attending Provider: Ro Neville Primary Care Provider: Unknown,Unknown Hospital Course Hospital Course: Admitted with regular uterine contractions at 40 W5D EGA. She would not have spontaneous vaginal delivery over an intact perineum without complications. Viable female infant will be named JACK. Placenta delivered intact with a normal configuration and three-vessel cord. Post course was uncomplicated she was discharged to home on day #1 successfully breast-feeding. [facility] 2 weeks for a check. Home Meds and New Rx's Prescriptions: No Action Adult Probiotic 3 billion cell capsule 3,000 mmu cells PO DAILY PRN Patient Comments: pt states she has not taken this med for a couple weeks now prenat.vits,brenda,[id number] Tablet 1 tab PO DAILY cholecalciferol (vitamin D3) 25 mcg (1,000 unit) tablet 25 mcg PO DAILY valacyclovir 1 gram tablet 2,000 mg PO BID Qty: 4 0RF Discharge Instructions Stand Alone Forms: BC Instructions, BC Post Vaginal Deliver Activity:: Activity as Tolerated Equipment/Supplies:: No Equipment Needed Diet:: As Tolerated DS: Summary Time Spent with Patient providing and/or coordinating discharge services: Less than 30 minutes Status at Discharge Functional status at discharge: independent ambulation Overall status at discharge: patient is progressing back to baseline Mental Status: mental status grossly normal Speech and Movement: speech and movement normal Mood: congruent mood Affect: normal affect Quality:SDOH Health Related Social Needs: No Data to Display Exam Narrative Exam Narrative: Breast-feeding during the night. Report reports feeling tired. Ready to go home. Const General: no acute distress Nutritional Appearance: average body habitus Orientation: alert, awake and oriented x3 Resp Effort & Inspection: normal respiratory effort GI Other: Abdomen soft nontender with fundus at 1 fingerbreadth below umbilicus. Perineum not inspected General: deferred Skin General skin exam: no rashes or lesions noted Extrem General: normal to inspection Psych Appearance: grossly normal Mental Status: mental status grossly normal Speech and Movement: speech and movement normal Mood: congruent mood Affect: normal affect Attitude: cooperative DS: Data Vitals/I&O Vitals and I&O: Vital Signs Temperature 98.4 F 05/25/24 20:30 Temperature 97.9 F 05/26/24 08:52 Temperature Source Oral 05/25/24 20:30 Pulse 67 05/25/24 20:30 Pulse 77 05/26/24 08:52 Pulse Rhythm Regular 05/25/24 20:30 Respiratory Rate 18 05/25/24 20:30 Respiratory Depth Normal 05/25/24 03:19 Blood Pressure 105/67 05/25/24 20:30 Blood Pressure 108/78 05/26/24 08:52 Blood Pressure Mean 79 05/25/24 20:30 Pulse Oximetry 97 05/25/24 20:30 Oxygen Delivery Method Room Air 05/25/24 03:19 Oxygen Flow Rate 0 05/25/24 03:19 Pain Level 2 05/26/24 00:11 Intake & Output 05/25/24 05/25/24 05/26/24 11:59 23:59 11:59 Intake Total 500 / 500 Output Total 300 / 1200 900 / 1200 Balance 200 / -700 -900 / -700 Weight 150 lb Intake: IV 500 / 500 Output: Urine 300 / 1200 900 / 1200 Other: Comment up ad julio, voiding WNL, denies complaints Voiding Methods Toilet PFSH All Active Problems (Updated 05/26/24 @ 08:57 by Ro Neville MD) Vaginal delivery (Acute) Term (Acute) Uterine contractions (Acute) HRP (high risk ) (Acute) AMA Medical History Term of female History of molar Family history of breast cancer PGM 55 Family History Paternal Grandmother , 55 Breast cancer Personal history of malignant neoplasm Father Hypertension Maternal Grandfather , 70s Myocardial infarct Social History Smoking/Tobacco Use Status: Never Smoking risk assessment performed?: Yes Alcohol Intake: former Drug use: Never Substance use type: does not use Counseling given: No Details: not while Housing: house Seatbelt use: always Do you feel safe at home: Yes Do you feel safe in your relationship?: Yes Female Reproductive History Menstrual control method: none History History 5 Para 3 Hx # Term Pregnancies 3 Multiple births 0 Hx # Pregnancies 0 Ectopic pregnancies 0 AB induced 0 Hx Number of Living Children 3 AB spontaneous 2 Past Pregnancies Del. Date GA/Weeks # Preg Succ Route Wgt Sex Labor Lgth Anesth esia Location [facility] 01/30/10 40 No vaginal 7 lb 5 oz Male 5.[address] Jessy Conklin 07/14/19 4 03/14/20 10 08/29/21 39 No vaginal 6 lb 5.06 oz Female 6 hours JAZZMINE Marquez 05/25/24 No Yes vaginal 6 lb 9 oz Female aoc Delivery Date: 01/30/10 Last Updated by: Zully Kinney Placental hematoma, bleeding in 2nd trimester. Hospitalized x 1 week at [facility] [place]. Bedrest x last three months. [place] Delivery Date: 07/14/19 Last Updated by: Noemi Carl CNM IUD removal indicated , regular period Delivery Date: 03/14/20 Last Updated by: Noemi Carl CNM [place] Delivery Date: 08/29/21 Last Updated by: MARIYA Salgado Delivery Date: 05/25/24 Last Updated by: Ro Neville MD Uncomplicated. [facility] Time Spent with Patient Time Spent with Patient: <45 minutes Time was spent: preparing to see the patient(eg.review tests), obtaining and/or reviewing separately otained hiistory and referring, communicating with other health tire care manager
[2024-05-26 10:06] VITALS: BP 102/66; PULSE 64; RESP 18; TEMP 36.7; O2SAT 97
--- NOTE | 2024-05-26 10:47 | W.OBDELIVERY ---
Date of service: 05/26/24 Time of Service: 10:47 OB Labor/ Delivery Information Baby A Delivery Delivery Method: Spontaneaous Presentation: Cephalic Cephalic Position: Vertex Vertex Position: Left Occipital Posterior Cord Description-Baby A: 3 Vessels Amniotic Fluid: Clear Estimated Blood Loss: 100 Delivery Outcome: Liveborn Transferred: Remains with Mother Providers Doctor: Ro Neville Nurse: Christy Ortega Nurse: Hui Hoyos Labor/Delivery Information Number of Babies in Womb: 1 Steroids Given: None Reason Steroids Not Administered: N/A Group Beta Strep: Negative Antibiotics Administered: No Rubella Status: Immune Blood Type: A+ Varicella Immunity: Immune Medication in Delivery: pp pit Maternal Complications: None Shoulder Dystocia: No Stages of Labor Onset of Labor Date: 05/25/24 Onset of Labor Time: 01:00 Complete Dilatation Date: 05/25/24 Complete Dilatation Time: 04:37 Labor - Stage 1 Duration: 3 hours and 37 minutes ROM Baby A: 05/25/24 ROM Baby A: 04:37 ROM Total Time- Baby A: [id number] Delivery Date-Baby A: 05/25/24 Delivery Time-Baby A: 05:16 Labor Stage 2 Duration: 39 minutes Placenta Delivery Date-Baby A: 05/25/24 Placenta Delivery Time-Baby A: 05:22 Labor-Stage 3 Duration: 6 minutes Total Length of Labor-Baby A: 4 hours and 16 minutes Placenta Cultured: No Placenta Status: Delivered Baby A Gender: Female Gestational Status: Term (39-41.6 wks) Gestational Age in Weeks/Days: 40 Weeks and 5 Days weight: 6 lb 9.116 oz Length-Baby A: 18.9 in Head Circumference-Baby A: 13 in Score-1 Minute Interval(Baby A) Heart Rate-1 minute: 100 BPM or Greater Respiratory Effort- 1 minute: Spontaneous/Strong Cry Muscle Tone-1 minute: Active Movement Reflex Response-1 minute: Prompt Response Color-1 minute: Pallor or Cyanosis Total Score-1 minute: 8 Score-5 Minute Interval(Baby A) Heart Rate- 5 minute: 100 BPM or Greater Respiratory Effort-5 minute: Spontaneous/Strong Cry Muscle Tone-5 minute: Active Movement Reflex Response-5 minute: Prompt Response Color-5 minute: Bluish Hands or Feet Total Score- 5 minute: 9
== END 2024-05-26 11:45 | disposition home or self-care (01) | DRG 807 ==
PROVIDERS: Admitting Provider Obstetrics & Gynecology Gynecology; Visit Provider Obstetrics & Gynecology Gynecology
DX: O80 Encounter for full-term uncomplicated delivery (principal); Z37.0 Single live birth; Z3A.40 40 weeks gestation of pregnancy
CPT/HCPCS: 36415; 85027; 86850; 86900; 86901

== ENCOUNTER 2024-10-12 11:51 | Outpatient (REF) | payer MEDICAID, SELFPAY ==
--- NOTE | 2024-10-12 11:40 | PAPFT_PTH ---
PATIENT: Brenda Ding LOC: [facility] U#:[id number] AGE/SX: 39/F ROOM: RE10/12/[address]: Marta Anders DO : 1985 BED: DIS: 10/12/2024 SPEC #: [id number] RECD: 10/12/24 12:54 STATUS: FLACO REQ #: [id number] PRISCILLA: 10/12/24 11:[address]: Marta Anders DEPT: [facility] Cytology RECD BY: Carrie Harding ENTERED: 10/12/24 12:54 SP TYPE: PAPFT OTHR DR: Unknown,Unknown Tissues: 1 - CX/ENDOCX FOR PAP SMEARS Procedures: PAP THIN PREP/UVM Screening HPV DNA PROBE Comments: (HPV 16 & 18/45)
== END 2024-10-12 11:52 | disposition home or self-care (01) ==
LOC: LBN 11:51
PROVIDERS: Visit Provider Obstetrics & Gynecology
DX: Z01.419 Encounter for gynecological examination (general) (routine) without abnormal findings (principal)
CPT/HCPCS: 88142; 87624

== ENCOUNTER 2025-01-13 02:58 | Outpatient (CLI) | payer MEDICAID, SELFPAY ==
[2025-01-13 12:44] LABS: Abs Immature Grans 0.02 10^3/uL (0.0-0.06); Absolute Basophil Count 0.04 10^3/uL (0.0-0.2); Absolute Eosinophil Count 0.06 10^3/uL (0.0-0.7); Absolute Lymphocyte Count 2.53 10^3/uL (1.2-3.4); Absolute Monocyte Count 0.42 10^3/uL (0.1-0.8); Absolute Neutrophil Count 4.29 10^3/uL (1.2-6.7); Basophils % 0.5 %; Eosinophils % 0.8 %; HCT 40.1 % (36.0-46.0); HGB 13.4 g/dL (11.2-15.7); Immature Grans % 0.3 %; Lymphocytes % 34.4 %; MCH 30.9 pg (27.0-33.0); MCHC 33.4 % (32.0-36.0); MCV 92 fL (80-95); MPV 10.1 fL (8.0-11.0); Monocytes % 5.7 %; Neutrophils % 58.3 %; Platelet Count 196 10^3/uL (130-400); RBC 4.34 10^6/uL (3.93-5.22); RDW 11.9 % (11.7-14.6); RDW-SD 40.7 fL; WBC 7.36 10^3/uL (4.4-10.8)
[2025-01-13 14:43] LABS: Iron 101 ug/dL (50-170)
[2025-01-13 14:59] LABS: ALT 18 U/L (14-59); AST 12 U/L (15-37); Alkaline Phosphatase 62 U/L (46-116); Anion Gap 6.2 mmol/L (3-11); BUN 17 mg/dL (7-18); Bilirubin, Total 0.5 mg/dL (0.2-1.0); CO2 29.8 mmol/L (21.0-32.0); CREATININE 0.7 mg/dL (0.55-1.02); Calcium 9.2 mg/dL (8.5-10.1); Chloride 105 mmol/L (98-107); Estimated GFR 113.46 (mL/min/1.73m2); Glucose 86 mg/dL (74-106); Potassium 3.7 mmol/L (3.5-5.1); Sodium 141 mmol/L (136-145); TSH 1.15 uIU/mL (0.36-3.74); Total Protein 7.8 g/dL (6.4-8.2); Vitamin B12 921 pg/mL (193-986)
== END 2025-01-13 02:59 | disposition home or self-care (01) ==
PROVIDERS: Visit Provider Naturopath
DX: M54.50 Low back pain, unspecified (principal); R53.83 Other fatigue; R10.9 Unspecified abdominal pain
CPT/HCPCS: 36415; 80053; 82607; 83540; 84443; 85025

== ENCOUNTER 2025-02-08 16:28 | Outpatient (CLI) | payer MEDICAID, SELFPAY ==
[2025-02-11 14:52] LABS: Tissue Transglutaminase Ab IgG 2.6 U/mL
== END 2025-02-08 16:29 | disposition home or self-care (01) ==
LOC: LBO 16:28
PROVIDERS: Visit Provider Naturopath
DX: M54.50 Low back pain, unspecified (principal); R53.83 Other fatigue; R10.9 Unspecified abdominal pain
CPT/HCPCS: 36415; 86364; 86255

== ENCOUNTER 2025-05-12 14:08 | Outpatient (REF) | payer SELFPAY ==
[2025-05-13 12:01] LABS: Helicobacter pylori Ag, Feces Negative (Negative)
== END 2025-05-12 14:09 | disposition home or self-care (01) ==
LOC: LBN 14:08
PROVIDERS: Visit Provider Naturopath
DX: K21.9 Gastro-esophageal reflux disease without esophagitis (principal)
CPT/HCPCS: 87338

== ENCOUNTER 2025-07-12 06:58 | Day surgery (SDC) | payer SELFPAY ==
--- NOTE | 2025-07-11 18:16 | HPE_ITS ---
Assessment and Plan Assessment and plan (1) Stomach pain: Status: Acute Assessment and plan: We reviewed the plan for an EGD, and Brenda had the chance to ask any other questions. We can proceed with EGD as scheduled History of Present Illness History of Present Illness Chief Complaint: GERD Narrative: Brenda is 39 years old, and she is here with mostly dysphagia type symptoms. Or perhaps better describe reflux type symptoms. She recalls the onset of this just over a year ago, around the time of . Initially, discomfort was mostly in upper abdomen, described kind of as a gnawing or burning sensation. Since most of her symptoms occur after dinnertime, she also tried some dietary modification. She was dairy free for a while, and she also become gluten free, despite a negative serum transglutaminase. Again, maybe there was a little bit of change in the symptomatology, but nothing that relieved it completely. More recently, the discomfort it really migrated chest. She really does not have any other upper abdominal complaints anymore. She has used Prilosec with favorable response. She has never had any type of thoracic or abdominal surgeries. She denies any family history of significant GI pathology. There have been no major interval changes with regards to the history since her last visit. PFSH All Active Problems Stomach pain (Acute) Bloating (Acute) Vaginal delivery (Acute) Term (Acute) Medical History Term of female History of molar Family history of breast cancer PGM 55 Surgical History H/O dilation and curettage Family History Paternal Grandmother , 55 Breast cancer Personal history of malignant neoplasm Father Hypertension Maternal Grandfather , 70s Myocardial infarct Social History Smoking/Tobacco Use Status: Never Smoking risk assessment performed?: Yes Alcohol Intake: current Alcohol Intake frequency: a few times a month Drug use: Daily Substance use type: marijuana Counseling given: No Details: smokes marijuana daily Housing: house Seatbelt use: always Do you feel safe at home: Yes Do you feel safe in your relationship?: Yes Female Reproductive History Menstrual control method: none History History 5 Para 3 Hx # Term Pregnancies 3 Multiple births 0 Hx # Pregnancies 0 Ectopic pregnancies 0 AB induced 0 Hx Number of Living Children 3 AB spontaneous 2 Past Pregnancies Del. Date GA/Weeks # Preg Succ Route Wgt Sex Labor Lgth Anesth esia Location [facility] 01/30/10 40 No vaginal 7 lb 5 oz Male 5.[address] Jessy Conklin 07/14/19 4 03/14/20 10 08/29/21 39 No vaginal 6 lb 5.06 oz Female 6 hours JAZZMINE Marquez 05/25/24 40 No Yes vaginal 6 lb 9 oz Female aoc Delivery Date: 01/30/10 Last Updated by: Zully Kinney Placental hematoma, bleeding in 2nd trimester. Hospitalized x 1 week at [facility] [place]. Bedrest x last three months. [place] Delivery Date: 07/14/19 Last Updated by: Noemi Carl CNM IUD removal indicated , regular period Delivery Date: 03/14/20 Last Updated by: Noemi Carl CNM [place] Delivery Date: 08/29/21 Last Updated by: Marta Estrada LPN Aliza Gaines Delivery Date: 05/25/24 Last Updated by: Ro Neville MD Uncomplicated. [facility] Meds Allergies and Home Medications Allergies Allergy/AdvReac Type Severity Reaction Status Date / Time No Known Allergies Allergy Unverified 07/12/25 07:37 Home Medications ?Medication ?Instructions ?Recorded ?Confirmed ?Type omeprazole magnesium 20 mg 20 mg PO DAILY 06/09/2501/04 History tablet,delayed release (Prilosec OTC) Exam Const General: cooperative, healthy appearing and not in acute distress Neck Neck: normal visual inspection, no lymphadenopathy and supple Resp Effort & Inspection: normal respiratory effort Auscultation: clear to auscultation bilaterally Cardio Jugular venous pressure: no JVD Rate: regular rate Rhythm: regular rhythm Heart Sounds: S1 normal and S2 normal GI Inspection: normal to inspection Palpation: soft, no guarding, no hernias and nontender Percussion: normal to percussion Auscultation: normal bowel sounds Neuro General: patient alert, patient awake and patient oriented x3 Psych Appearance: grossly normal
--- NOTE | 2025-07-11 18:17 | PDOC.DSDIS_ITS ---
Date of service: 07/12/25 Discharge Plan Disposition Patient Disposition: Home Condition: Good Discharge Details Attending Provider: Keven Thomas Primary Care Provider: Amanda Quiroz Home Meds and New Rx's Prescriptions: New pantoprazole 20 mg tablet,delayed release (DR/EC) 20 mg PO DAILY Qty: 30 0RF Rx Instructions: Take 1 tablet by mouth every day Discontinued omeprazole magnesium [Prilosec OTC] 20 mg tablet,delayed release (DR/EC) 20 mg PO DAILY Discharge Instructions Additional Instructions: Brenda, it was good seeing you, and I hope you feel well after the procedure. Generally speaking, things look pretty normal. The area where your esophagus connects onto your stomach is known as the Z-line, there is just a little bit of irregularity here, that would support the diagnosis of gastroesophageal reflux disease as a source of the symptoms. Otherwise, there is certainly nothing overwhelming to worry about. Since we are trying to get you to feel better, however, I did go ahead and microsoft exchange administrator your omeprazole to pantoprazole. It is 1 pill by mouth daily. Will start at the low dose, and see if you have any change in the symptoms. If it is helpful, we could escalate if needed. I did several biopsies of your duodenum, stomach, and esophagus to see if that sheds any light on other opportunities for treatment. Those will take about a week or 2 to get back. I will wait and see those results, and how the pantoprazole goes before making any other changes. If everything else tolerates up normal, then I think the swallow study that we talked about is reasonable, perhaps an ultrasound of your gallbladder just to make sure that this is not cholecystitis causing your symptoms, although the location seems a little out of the ordinary for that. If you need anything, or have any questions at all in the meantime, please do not hesitate to ask, otherwise my office will be in touch once we have the results of the biopsies. 1. If tolerated, consume a soft, low fiber diet for 1-2 days. [address] Do not drive, drink alcohol, operate machinery, make critical decisions, or do activities that require coordination or balance for 24 hours. 3. You may experience a sore throat for 24 to 48 hours. You may use throat lozenges or gargle with warm salt water to relieve the discomfort. 4. Because air was put into your stomach during the procedure, you may experience some belching. 5. Go directly to the emergency room if you notice any of the following: Develop chills (warm to touch), or if you have a thermometer and your temperature is above 101 Difficulty breathing or difficultly swallowing Persistent vomiting Severe abdominal pain, other than gas cramps Severe chest pain Black, tarry stools Any bleeding ? exceeding one tablespoon 6. Call your physician if the site where your intravenous was started becomes red, swollen, painful, and warm to touch. 7. Your physician has reviewed your pre-procedure medications. Please continue to take those medications as previously ordered. You will be given specific information/education regarding any changes to your medications before leaving. Activity:: Activity as Tolerated Diet:: As Tolerated DS: Diagnosis Discharge Diagnosis (1) Stomach pain: Status: Acute
--- NOTE | 2025-07-11 18:20 | W.PM.ENDDOP ---
Date of service: 07/12/25 Time of Service: 09:17 Endoscopy Report DATE OF PROCEDURE: 07/12/25 PRE-OP DIAGNOSIS: GERD POST-OP DIAGNOSIS: same PROCEDURE: EGD with biopsies SURGEON: Keven Thomas ANESTHESIA TYPE: General:No Airway ESTIMATED BLOOD LOSS: 5 PATHOLOGY: other (Duodenal biopsies, gastric antrum and body biopsies, GE junction biopsies, esophagus biopsies) COMPLICATIONS: None DISPOSITION: same day INDICATIONS: Brenda is a 39-year-old woman with symptoms suggestive of GERD and dyspepsia. Symptoms have been increasing despite attempted PPI therapy PROCEDURE START TIME: 08:54 PROCEDURE END TIME: :08 FINDINGS: Mild irregularity of the Z-line at 36 centimeters from the incisors PROCEDURE DESCRIPTION: After the initiation of anesthesia, and with the assistance of a bite block, I advanced a standard gastroscope through the mouth past the hypopharynx and into the esophagus.? Under the direct vision of the scope, I advanced down the esophagus towards the stomach.? The upper, mid, and lower esophagus were all normal. There were no diverticulum. There were no esophageal inlet patches. The GE junction is encountered 36 cm past the incisors. There is very mild irregularity of the Z-line. Narrowband imaging was used to assist with the analysis. I did not appreciate any clinical features of Paz's esophagus. I can advance across the GE junction with ease. The stomach is insufflated into the rugae were obliterated. I performed retroflexion. I did not see signs of a hiatal hernia. The gastric mucosa appeared normal. I saw no evidence of any active gastritis.? There is no bile in the stomach. Next, I advanced the scope through the pylorus into the duodenum.? The mucosa was pink and healthy appearing.? There were no abnormalities.? Given some concerns for celiac disease, I did do some biopsies of the duodenal bulb, although clinically, the villi were normal-appearing. There was minimal bleeding from the biopsy sites, which were performed with cold forceps. I returned to the stomach which was carefully examined once again.? I did some nondirected biopsies of the gastric antrum and body to rule out Helicobacter pylori as a source of the symptoms. I then gently desufflated some of the stomach, and withdrew the endoscope into the distal esophagus. Nondirected cold forceps biopsies were performed of the GE junction. I brought the camera up along the length of the esophagus once again. It appeared normal. I performed cold forceps biopsies here to rule out microscopic esophagitis. Biopsies were performed with cold forceps here, there was minimal bleeding at the sites as well. I then advanced the camera back down into the stomach and emptied it completely. ?The camera was then removed, the patient was allowed awaken from the anesthetic and transferred back to the day surgery unit.
--- NOTE | 2025-07-12 06:23 | ANES.PREOP_ITS ---
General Info Date of Service Date Performed: 07/12/25 Height: 5 ft 2 in Weight: 54.431 kg Body Mass Index (BMI): 21.9 Surgical Procedure: Operation Date: 07/12/25 08:20 Proposed Procedure Side Surgeon p Gastroscopy Keven Thomas MD Meds Allergies and Home Medications Allergies Allergy/AdvReac Type Severity Reaction Status Date / Time No Known Allergies Allergy Unverified 07/12/25 07:37 Home Medication ?Medication ?Instructions ?Recorded omeprazole magnesium 20 mg 20 mg PO DAILY 06/09/25 tablet,delayed release (Prilosec OTC) Current Visit Medications: Current Medications Generic Name Dose Route Start Last Admin Trade Name Freq PRN Reason Stop Dose Admin Ringer's Solution 1,000 mls @ 80 mls/hr 07/12/25 06:00 IV 07/12/25 23:59 INFUSION DAWOOD IV Miscellaneous Supplies 1 each 07/12/25 06:00 Iv Access IV 07/12/25 23:59 DIRECTED DAWOOD Sodium Chloride 0 ml 07/12/25 06:00 Normal Saline Flush 10 Ml Syr IV 07/12/25 23:59 PRN PRN Sodium Chloride 0 ml 07/12/25 06:00 Normal Saline 10 Ml Vial IJ 07/12/25 23:59 DIRECTED PRN Sterile Water 0 ml 07/12/25 06:00 Water,Injection,Sterile 10 Ml Vial IJ 07/12/25 23:59 DIRECTED PRN PFSH Active Problems Active Problems: Problem Status Onset Code Stomach pain Acute R10.9 Bloating Acute R14.0 Vaginal delivery Acute O80 Term Acute Z34.90 Medical History Medical History Term of female History of molar Family history of breast cancer PGM 55 Surgical History Surgical History H/O dilation and curettage Tobacco Smoking/Tobacco Use Status: Never Passive smoking exposure: No Alcohol Alcohol Intake: current Alcohol intake frequency: a few times a month Substance Use Substance use: Daily Substance use type: marijuana Details: smokes marijuana daily Prental History History 5 Para 3 Hx # Term Pregnancies 3 Multiple births 0 Hx # Pregnancies 0 Ectopic pregnancies 0 AB induced 0 Hx Number of Living Children 3 AB spontaneous 2 Past Pregnancies Del. Date GA/Weeks # Preg Succ Route Wgt Sex Labor Lgth Anesth esia Location Prov [facility] 01/30/10 40 No vaginal 3316.894 g Male 5.[address] Lor Conklin 07/14/19 4 03/14/20 10 08/29/21 39 No vaginal 2865.003 g Female 6 hours Herve Walton CNM 05/25/24 40 No Yes vaginal 2976.7 g Female aoc Delivery Date: 01/30/10 Last Updated by: Zully Kinney Placental hematoma, bleeding in 2nd trimester. Hospitalized x 1 week at [facility] [place]. Bedrest x last three months. [place] Delivery Date: 07/14/19 Last Updated by: Noemi Carl CNM IUD removal indicated , regular period Delivery Date: 03/14/20 Last Updated by: Noemi Carl CNM [place] Delivery Date: 08/29/21 Last Updated by: MARIYA Salgado Delivery Date: 05/25/24 Last Updated by: Ro Neville MD Uncomplicated. [facility] Vital Signs and Lab Results Vital Signs Most Recent Vital Signs in EMR: Temp Pulse Resp BP Pulse Ox 36.2 C L 78 16 114/82 100 07/12/25 07:10 07/12/25 07:10 07/12/25 07:10 07/12/25 07:10 07/12/25 07:10 Anesthesia Assessment and Plan Anesthesia History Personal History: No History of Anesthesia Complications Family History: No Family History of Anesthesia Complications Exercise Tolerance Exercise Tolerance: Metabolic Equivalents>4 Cardiac & Pulmonary Exam Cardiac Exam: Normal S1/S2 Heart Sounds Pulmonary Exam: Clear Bilateral Breath Sounds Implantable Cardiac Device Does patient have a Pacemaker or an ICD?: No Airway Exam Known Difficult Airway: No Mallampati Class: 2 Mouth Opening: Normal (> 3cm) Thyromental Distance: Greater than 3 cm Neck Range of Motion: Full ROM Neck Circumference: Normal Teeth Condition: Normal Dentition ASA Classification ASA Score: ASA 2 Emergency Case?: No NPO Status NPO Status: NPO Clears >2 hours, Solids >8 hours Status Status: Negative HCG Anesthesia Plan Resuscitation Status: Full Code Anesthesia Technique: General Anesthesia Airway Planned: Natural Airway Monitors Used: Standard Monitors Preoperative Comments:: 39 yo for EGD. Sig PMHx: GERD (omeprazole), never smoker, occ EtOH. Previous Anes: - d/c, prop, natural airway, no issues.
[2025-07-12 07:10] VITALS: BP 114/82; PULSE 78; RESP 16; TEMP 36.2; O2SAT 100
[2025-07-12 07:53] VITALS: BMI 21.9
[2025-07-12] MEDS: Lactated Ringers 1,000 ML 80 ML IV (08:03)
--- NOTE | 2025-07-12 08:57 | BOWEL_PTH ---
PATIENT: Brenda Ding LOC: [facility] U#:[id number] AGE/SX: 39/F ROOM: RE07/12/[address]: Keven Thomas MD : 1985 BED: DIS: 07/12/2025 SPEC #: [id number] RECD: 07/12/25 12:36 STATUS: [facility] #: [id number] PRISCILLA: 07/12/25 08:[address]: Keven Thomas DEPT: Surgical Specimen RECD BY: Carrie Harding ENTERED: 07/12/25 12:39 SP TYPE: Bowel OTHR DR: Amanda Quiroz Tissues: 1 - BIOPSY BOWEL 2 - STOMACH BIOPSY 3 - STOMACH BIOPSY 4 - ESOPHAGUS BIOPSY 5 - ESOPHAGUS BIOPSY Procedures: GROSS AND MICRO LEVEL 4 Comments: [id number]
[2025-07-12 09:10] VITALS: BP 103/73; PULSE 91; RESP 15; TEMP 36.1; O2SAT 98
[2025-07-12 09:40] VITALS: BP 105/77; PULSE 59; RESP 16; TEMP 36.1; O2SAT 100
--- NOTE | 2025-07-12 10:46 | W.ANESPOSTOP ---
Postoperative Evaluation Date, Time and Location Date Performed: 07/12/25 Time Performed: 09:10 Patient Location: Day Surgery Unit Vital Signs Most Recent Imported Vital Signs: Most Recent Vital Signs Temp Pulse Resp BP Pulse Ox 36.1 C L 59 L 16 105/77 100 07/12/25 09:40 07/12/25 09:40 07/12/25 09:40 07/12/25 09:40 07/12/25 09:40 Pain Score Most Recent Pain Score: Most Recent Pain Score Pain Level 0 07/12/25 09:40 Assessment Mental Status: Awake (Alert & Oriented to Patient Baseline) Airway and Respiratory Function: Patent airway with normal (patient baseline) respiratory exam Cardiovascular Function: Hemodynamically Stable Hydration Status: Adequately Hydrated Nausea & Vomiting: No Nausea or Vomiting Pain: Pt. Denies Any Pain Peripheral Nerve Block: Patient did not receive a nerve block
== END 2025-07-12 10:05 | disposition home or self-care (01) ==
PROVIDERS: PCP Naturopath; Visit Provider Surgery
PROC: 0DJ68ZZ Inspection of Stomach, Via Natural or Artificial Opening Endoscopic (ICD-10-PCS; CPT 43235; principal; 2025-07-12 08:15)
DX: K21.9 Gastro-esophageal reflux disease without esophagitis (principal); R10.9 Unspecified abdominal pain
CPT/HCPCS: 43239; 81025; 88305; J2405; J2704